=== PATIENT | female | born 1990 | race Caucasian/White ===

== ENCOUNTER 2021-01-04 11:22 | Outpatient (RCR) | payer OTHER, SELFPAY | END 2021-04-02 23:59 | disposition home or self-care (01) | LOC: ANHLAB 11:22 | PROVIDERS: Visit Provider Obstetrics & Gynecology | DX: N92.6 Irregular menstruation, unspecified (principal) | CPT/HCPCS: 36415; 84702 ==

== ENCOUNTER 2021-08-13 11:10 | Outpatient (CLI) | payer OTHER, SELFPAY ==
[2021-08-13] VITALS (9 sets, daily range): BP systolic 110–130; BP diastolic 63–91; PULSE 88–108
[2021-08-13 12:11] LABS: Basophils Percent Auto 0.2 % (0.2-1.2); Eosinophils Absolute Auto 0.1 K/mm3 (0-0.3); Eosinophils Percent Auto 1.7 % (0-4.4); Hematocrit 32.2 % (37.0-47.0); Hemoglobin 10.1 g/dL (12.0-15.0); Immature Granulocyte Absolute 0.02 K/mm3 (0.00-0.031); Immature Granulocyte Percent A 0.3 % (0-0.5); Lymphocytes Absolute Auto 1.15 K/mm3 (0.9-3.2); Lymphocytes Percent Auto 18.2 % (18.3-44.2); Mean Corpuscular HGB Conc 31.4 g/dl (32-36); Mean Corpuscular Hemoglobin 25.6 pg (26-34); Mean Corpuscular Volume 81.7 fl (80-100); Mean Platelet Volume 10.2 fl (7.4-10.4); Monocytes Absolute Auto 0.3 K/mm3 (0.1-0.6); Monocytes Percent Auto 5.4 % (2.6-8.5); Neutrophils Absolute Auto 4.7 K/mm3 (1.3-6.7); Neutrophils Percent Auto 74.2 % (45.5-73.1); Platelet Count Result 179 k/mm3 (150-375); Red Blood Count 3.94 M/mm3 (4.2-5.4); Red Cell Distribution Width 16.3 % (11.5-14.5); White Blood Count 6.3 K/mm3 (4.5-10.0)
[2021-08-13 12:20] LABS: Alanine Aminotransferase 13 U/L (4-35); Albumin Level 3.5 g/dL (3.5-5.1); Alkaline Phosphatase 125 U/L (38-126); Anion Gap 5 mmol/L (8-16); Aspartate Amino Transferase 19 U/L (14-36); Bilirubin,Total 0.4 mg/dL (0.2-1.3); Blood Urea Nitrogen 8 mg/dL (7-17); Calcium 8.4 mg/dL (8.4-10.2); Carbon Dioxide 22 mmol/L (22-30); Chloride 106 mmol/L (98-107); Estimated Glomerular Filt Rate > 60; Glucose 107 mg/dL (65-110); Potassium 4.4 mmol/L (3.4-5.0); Sodium 133 mmol/L (137-145)
[2021-08-13 13:15] LABS: Total Protein Urine Random 10 mg/dL; Ur Ttl Prot Creatinine Ratio 0.21 mg/mg (0-0.20)
[2021-08-13 13:17] LABS: Add Urine Microscopic? YES; Appearance Urine Clear (Clear); Bilirubin Urine Negative (Negative); Blood Urine Negative (Negative); Color Urine Straw (Yellow); Glucose Urine UA Negative (Negative); Ketones Urine Negative (Negative); Leukocyte Esterase Ur Negative LEU/UL (NEGATIVE); Nitrate Urine Negative (Negative); Protein Urine Negative (Negative); Squamous Epithelial Cell Urine Few /hpf (Few); Urobilinogen Urine Negative mg/dL (<2.0)
[2021-08-13 13:18] LABS: Specific Grav Ur 1.004 (1.001-1.035)
--- NOTE | 2021-08-13 14:20 | PC.NURSE ---
Called Dr. Cowan with lab results, BPs, and NST results. Wandering baseline on NST with reactive tracing. Orders received.
== END 2021-08-13 14:30 | disposition home or self-care (01) ==
LOC: ANHOBOP 11:15 → ANHLDR 11:43
PROVIDERS: PCP Internal Medicine Infectious Disease; Visit Provider Obstetrics & Gynecology
DX: O13.9 Gestational [pregnancy-induced] hypertension without significant proteinuria, unspecified trimester (principal); Z3A.00 Weeks of gestation of pregnancy not specified
CPT/HCPCS: 36415; 80053; 81001; 82570; 84156; 84550; 85025; 87086; 87088; 99199

== ENCOUNTER 2021-08-14 19:15 | Outpatient (NON) | payer OTHER, SELFPAY ==
[2021-08-14 19:36] VITALS: BMI 54.8
[2021-08-14 20:42] LABS: Collection Time Urine 24 HOURS
[2021-08-14 21:00] LABS: Total Volume 24 Hour Urine 1500 ml
[2021-08-14 21:17] LABS: Creatinine Clearance Urine 123.4 ml/min (75-125); Creatinine Urine 116.8 mg/dL; Patient Weight 329 Lbs
[2021-08-14 21:23] LABS: Total Protein Urine 24 Hr 75 mg/24hr (28-141); Total Protein Urine Random < 5 mg/dL
== END 2021-08-14 19:16 | disposition home or self-care (01) ==
LOC: ANHOBOP 19:27
PROVIDERS: PCP Internal Medicine Infectious Disease; Visit Provider Obstetrics & Gynecology
DX: O13.9 Gestational [pregnancy-induced] hypertension without significant proteinuria, unspecified trimester (principal); Z3A.00 Weeks of gestation of pregnancy not specified
CPT/HCPCS: 81050; 82575; 84156

== ENCOUNTER 2021-08-17 13:39 | Outpatient (CLI) | payer OTHER, SELFPAY ==
[2021-08-17 14:06] LABS: Hemoglobin 10.4 g/dL (12.0-15.0); Mean Corpuscular HGB Conc 30.6 g/dl (32-36); Mean Corpuscular Hemoglobin 25.7 pg (26-34); Mean Corpuscular Volume 84.2 fl (80-100); Mean Platelet Volume 10.5 fl (7.4-10.4); Platelet Count Result 198 k/mm3 (150-375); Red Blood Count 4.04 M/mm3 (4.2-5.4); Red Cell Distribution Width 16.6 % (11.5-14.5); White Blood Count 5.6 K/mm3 (4.5-10.0)
[2021-08-19 07:21] LABS: Rapid Plasma Reagin Non-Reactive (NonReactive)
== END 2021-08-17 13:40 | disposition home or self-care (01) ==
LOC: ANHLAB 13:41
PROVIDERS: PCP Internal Medicine Infectious Disease; Visit Provider Obstetrics & Gynecology
DX: Z34.93 Encounter for supervision of normal pregnancy, unspecified, third trimester (principal); Z3A.00 Weeks of gestation of pregnancy not specified
CPT/HCPCS: 36415; 85027; 86592; 86850; 86900; 86901

== ENCOUNTER 2021-08-19 05:30 | Inpatient (IN) | payer OTHER, SELFPAY ==
--- NOTE | 2021-08-06 12:49 | PC.NURSE ---
Verified with OR schedule and patient--C/S with Tubal Ligation on 08/19/21 at 0730 Patient given requisition for lab draw on 08/17/21
[2021-08-19] VITALS (44 sets, daily range): BP systolic 100–129; BP diastolic 44–79; PULSE 77–108; RESP 16–20; TEMP 36.1–36.8; O2SAT 95–100; BMI 55.5
--- OUTSIDE RECORDS SUMMARY | 2021-08-19 05:35 | XMS_ITS | Encounter Summary ---
:1990 Author Reason for Visit OB visit Assessment and Plan Assessment Note Patient is ___weeks . Discu ssed plan. 1. Routine care Discussion Note: None recorded.Patient educational handouts: No information available. Plan of Care Reminders Provider Appointments Surg Post 08/26/2021 Vilma Estrada Op 11:15AM MD David Lab None ? ? recorded. Referral None ? ? recorded. Procedures None ? ? recorded. Surgeries None ? ? recorded. Imaging None ? ? recorded. Medications Name Start Date ? ? Vitamin 27 mg iron-0.8 mg tablet ? Take 1 tablet every day by oral route. Medications Administered None recorded. Vitals Height Weight BMI Blood Pressure 5 ft 5 in 326 lbs 54.2 kg/m2 (1) 135/84 mm[H g] (2) 128/87 mm[Hg ] Results Lab Results None recorded. Allergies Code Code System Name Reaction Severity Onset NKDA ? ? ? Problems Name Status Onset Date Source ? Human Papillomavirus Deoxyribonucleic Active 10/13/2016 History Acid Test Positive, High Risk on Cervic
--- OUTSIDE RECORDS SUMMARY | 2021-08-19 05:35 | XMS_ITS ---
:1990 Author Care Team Providers Name Role Phone Catherine Cowan Primary Care Provider Unavailable Allergies Code Code System Name Reaction Severity Status Onset NKDA ? Medications Name Status Start Date Stop Date ? ? amoxicillin 500 mg capsule Completed 02/07/201502/16 take 1 capsule by oral route 3 times every day for 10 days Augmentin 875 mg-125 mg tablet Completed 05/11/2017 1 08/11/2016 take 1 tablet by oral route every 12 hours azithromycin 250 mg tablet Completed 03/11/201303/15 take 2 tablet (500MG) by oral route e very day for 1 day then 1 tablet (250 mg) by oral route once daily for 4 days fluconazole 150 mg tablet Completed ? 2020 furosemide 20 mg tablet Completed ? 12/15/19 14 take 1 tablet by oral route every day Incassia 0.35 mg tablet Completed ? 05/14/20 21 Macrobid 100 mg capsule Completed 01/31/2015 10/04/19 17 take 1 capsule by oral route every 12 hours with food, as dire cted metoclopramide 10 mg tablet Completed ? 03/2021 Metrogel Vaginal 0.75 % Completed 03/11/2013 03/15/20 13 insert 1 applicatorful (37.5MG) by vaginal route every day at bedtime Vitamin 27 mg iron-0.8 mg tablet Active ? Not available Take 1 tablet every day by oral route. progesterone micronized 200 mg Active ? N ot available capsule Se--19 29 mg iron-1 mg tablet Completed 06/15/2012 12/14/2013 take 1 tablet by oral route every day terconazole 0.4 % vaginal cream Completed ? 03/19/2021 Insert 1 applicatorful every day by vaginal route for 7 days.
--- OUTSIDE RECORDS SUMMARY | 2021-08-19 05:35 | XMS_ITS | Encounter Summary ---
:1990 Author Reason for Visit OB visit Assessment and Plan 1. Chronic hypertension in obste tric context 2. Deliveries by 3. Body mass index 40+ - severel y obese Discussion Note: None recorded.Patient educational handouts: No [...] BMI Blood Pressure 5 ft 5 in 323 lbs 53.7 kg/m2 132/83 mm[Hg] Results Lab Results None recorded. Allergies Code Code System Name Reaction Severity Onset NKDA ? ? ? Problems Name Status Onset Date Source ? Human Papillomavirus Deoxyribonucleic Active 10/13/2016 History Acid Test Positive, High Risk on Cervical Specimen Uterine Sca
--- OUTSIDE RECORDS SUMMARY | 2021-08-19 05:35 | XMS_ITS | Encounter Summary ---
:1990 Author Reason for Visit None recorded. Assessment and Plan 1. Chronic hypertension complica ting AND/OR reason for care during ? US, obstetric, biophysical profile + non-stress test Discussion Note: None recorded.Patient educational handouts: No information available. Plan of Care Reminders Provider Appointments Surg Post Op Haley Estrada 08/26/2021 MD David 11:15AM Lab None recorded. ? ? Referral None recorded. ? ? Procedures None recorded. ? ? Surgeries None recorded. ? ? Imaging US, Obstetric, [facility] Biophysical Profile + 07/30/2021 Non-stress Test Medications Name Start Date ? ? Vitamin 27 mg iron-0.8 mg tablet ? Take 1 tablet every day by oral route. Medications Administered None recorded. Vitals None recorded. Results Lab Results None recorded. Allergies Code Code System Name Reaction Severity Onset NKDA ? ? ? Problems Name Status Onset Date Source ? Human Papillomavirus Deoxyribonucleic Active 10/13/2016 History Acid Test Positive, High Risk on
--- OUTSIDE RECORDS SUMMARY | 2021-08-19 05:35 | XMS_ITS | Encounter Summary ---
:1990 Author Reason for Visit NST [id number] EDC 09/02/21 Assessment and Plan 1. Chronic hypertension complica ting AND/OR reason for care during ? non-stress test Discussion Note: None recorded.Patient educational handouts: No information available. Plan of Care Reminders Provider Appointments Surg Post 08/26/2021 Vilma Hernandez, [place] 11:15AM Lab None ? ? recorded. Referral None ? ? recorded. Procedures None ? ? recorded. Surgeries None ? ? recorded. Imaging 07/30/2021 [place] Non-stress Test Medications Name Start Date ? [...] Acid Test Positive, High Risk on Cervical S
--- OUTSIDE RECORDS SUMMARY | 2021-08-19 05:35 | XMS_ITS | Encounter Summary ---
:1990 Author Reason for Visit None recorded. Assessment and Plan 1. Maternal obesity complicating , childbirth and the puerperium, antepartum ? US, obstetric, biophysical profile + non-stress test Discussion Note: None recorded.Patient educational handouts: No information available. Plan of Care Reminders Provider Appointments Surg Post Op Haley Estrada 08/26/2021 MD David 11:15AM Lab None recorded. ? ? Referral None recorded. ? ? Procedures None recorded. ? ? Surgeries None recorded. ? ? Imaging US, Obstetric, [facility] Biophysical Profile + 08/13/2021 Non-stress Test Medications Name Start Date ? [...]
--- OUTSIDE RECORDS SUMMARY | 2021-08-19 05:35 | XMS_ITS | Encounter Summary ---
:1990 Author Reason for Visit None recorded. Assessment and Plan 1. Maternal obesity complicating , childbirth and the puerperium, antepartum ? US, obstetric, follow-up ? US, obstetric, biophysical profile + non-stress test Discussion Note: None recorded.Patient educational handouts: No information available. Plan of Care Reminders Provider Appointments Surg Post Op Haley Estrada 08/26/2021 MD David 11:15AM Lab None recorded. ? ? Referral None recorded. ? ? Procedures None recorded. ? ? Surgeries None recorded. ? ? Imaging US, Obstetric, [facility] Follow-up 08/06/2021 ? US, Obstetric, [place] Biophysical Profile + 08/06/2021 Non-stress Test Medications Name Start Date ? ? Vitamin 27 mg iron-0.8 mg tablet ? Take 1 tablet every day by oral route. Medications Administered None recorded. Vitals None recorded. Results Lab Results None recorded. Allergies Code Code System Name Reaction Severity Onset NKDA ? ? ? Proble
--- OUTSIDE RECORDS SUMMARY | 2021-08-19 05:35 | XMS_ITS | Encounter Summary ---
:1990 Author Reason for Visit OB visit OB [id number] EDC 09/02/2021 LMP 09/13/2020 Assessment and Plan 1. Routine care Discussion Note: None recorded.Patient [...] BMI Blood Pressure 5 ft 5 in 327 lbs 54.4 kg/m2 122/64 mm[Hg] Results Lab Results None recorded. Allergies Code Code System Name Reaction Severity Onset NKDA ? ? ? Problems Name Status Onset Date Source ? Human Papillomavirus Deoxyribonucleic Active 10/13/2016 History Acid Test Positive, High Risk on Cervical Specimen Uterine Scar from Previous Surgery Active 07/19/2019 History Affecting
--- OUTSIDE RECORDS SUMMARY | 2021-08-19 05:35 | XMS_ITS | Encounter Summary ---
[...] None recorded. ? ? Imaging US, Obstetric, [facility] Biophysical Profile + 07/23/2021 Non-stress Test Medications Name Start Date ? [...]
--- OUTSIDE RECORDS SUMMARY | 2021-08-19 05:35 | XMS_ITS | Encounter Summary ---
:1990 Author Reason for Visit None recorded. Assessment and Plan 1. Maternal obesity complicating , childbirth and the puerperium, antepartum ? non-stress test Discussion Note: None recorded.Patient educational handouts: No information available. Plan of Care Reminders Provider Appointments Surg Post 08/26/2021 Vilma Hernandez, Op 11:15AM Lab None ? ? recorded. Referral None ? ? recorded. Procedures None ? ? recorded. Surgeries None ? ? recorded. Imaging 08/06/2021 [place] Non-stress Test Medications Name Start Date ? [...] Scar from Previous Surgery Active 07/19/2019 History Affect
--- OUTSIDE RECORDS SUMMARY | 2021-08-19 05:35 | XMS_ITS | Encounter Summary ---
[...] recorded. Surgeries None ? ? recorded. Imaging 08/13/2021 [place] Non-stress Test Medications Name Start Date ? [...]
--- OUTSIDE RECORDS SUMMARY | 2021-08-19 05:35 | XMS_ITS | Encounter Summary ---
[...] recorded. Surgeries None ? ? recorded. Imaging 07/23/2021 [place] Non-stress Test Medications Name Start Date ? [...] from Previous Surgery Active 07/19/2019 History Affecting Preg
--- OUTSIDE RECORDS SUMMARY | 2021-08-19 05:35 | XMS_ITS | Encounter Summary ---
:1990 Author Reason for Visit OB visit and pre-op Assessment and Plan 1. Chronic hypertension in obste tric context 2. History of pre-eclampsia 3. Deliveries by 4. Headache 5. Reduced movement Discussion Note: None recorded.Patient educational handouts: No [...] BMI Blood Pressure 5 ft 5 in 329 lbs 54.7 kg/m2 141/85 mm[Hg] Results Lab Results None recorded. Allergies Code Code System Name Reaction Severity Onset NKDA ? ? ? Problems Name Status Onset Date Source ? Human Papillomavirus Deoxyribonucleic Active 10/13/2016 History
--- OUTSIDE RECORDS SUMMARY | 2021-08-19 05:36 | XMS_ITS | Encounter Summary ---
:1990 Author Reason for Visit NST 32wks 1d EDC 09/02/2021 Assessment and Plan 1. Chronic hypertension complica ting AND/OR reason for care during ? non-stress test Discussion Note: None recorded.Patient educational handouts: No information available. Plan of Care Reminders Provider Appointments Surg Post 08/26/2021 Vilma Hernandez, [place] 11:15AM Lab None ? ? recorded. Referral None ? ? recorded. Procedures None ? ? recorded. Surgeries None ? ? recorded. Imaging 07/09/2021 [place] Non-stress Test Medications Name Start Date ? ? Vitamin 27 mg iron-0.8 mg tablet ? Take 1 tablet every day by oral route. Medications Administered None recorded. Vitals Height Weight BMI Blood Pressure 5 ft 5 in 321 lbs 53.4 kg/m2 143/82 mm[Hg] Results Lab Results None recorded. Allergies Code Code System Name Reaction Severity Onset NKDA ? ? ? Problems Name Status Onset Date Source ? Human Papillomavirus Deoxyribonucleic Active 10/13/2016 History Acid Test Positive, High Risk on Cervical
--- OUTSIDE RECORDS SUMMARY | 2021-08-19 05:36 | XMS_ITS | Encounter Summary ---
:1990 Author Reason for Visit OB visit Assessment and Plan 1. Chronic hypertension in obste tric context 2. Body mass index 40+ - severel y obese 3. Deliveries by ? section (SURG) 4. Sterilization requested ? salpingectomy (SURG) Discussion Note: None recorded.Patient educational handouts: No information available. Plan of Care Reminders Provider Appointments Surg Post Op Haley Estrada 08/26/2021 MD David 11:15AM Lab None recorded. ? ? Referral None recorded. ? ? Procedures None recorded. ? ? Surgeries Section Chris Surgery (SURG) 08/19/2021 David ? Salpingectomy And erson Surgery (SURG) 08/19/2021 David Imaging None recorded. ? ? Medications Name Start Date ? ? Vitamin 27 mg iron-0.8 mg tablet ? Take 1 tablet every day by oral route. Medications Administered None recorded. Vitals Height Weight BMI Blood Pressure 5 ft 5 in 318 lbs 52.9 kg/m2 137/82 mm[Hg] Results Lab Results
--- OUTSIDE RECORDS SUMMARY | 2021-08-19 05:36 | XMS_ITS | Encounter Summary ---
[...] recorded. Surgeries None ? ? recorded. Imaging 07/16/2021 [place] Non-stress Test Medications Name Start Date ? [...]
--- OUTSIDE RECORDS SUMMARY | 2021-08-19 05:36 | XMS_ITS | Encounter Summary ---
:1990 Author Reason for Visit None recorded. Assessment and Plan 1. screening ? US, obstetric, follow-up Discussion Note: None recorded.Patient educational handouts: No information available. Plan of Care Reminders Provider Appointments Surg Post 08/26/2021 Vilma Hernandez, Op 11:15AM Lab None ? ? recorded. Referral None ? ? recorded. Procedures None ? ? recorded. Surgeries None ? ? recorded. Imaging US, 06/10/2021 [place] Obstetric, Follow-up Medications Name Start Date ? ? Vitamin [...] from Previous Surgery Active 07/19/2019 History Affecting Active
--- OUTSIDE RECORDS SUMMARY | 2021-08-19 05:36 | XMS_ITS | Encounter Summary ---
:1990 Author Reason for Visit OB visit 33w1d Assessment and Plan 1. Routine care 2. -induced hypertensio n ? CBC w/ auto diff ? CMP, serum or plasma ? uric acid, serum or plasma Discussion Note: None recorded.Patient educational handouts: No information available. Plan of Care Reminders Provider Appointments Surg Post 08/26/2021 Vilma Estrada Op 11:15AM MD David Lab CBC W/ Auto 07/16/2021 [facility] (Lab) ? CMP, Serum 07/16/2021 [facility] (Lab) ? Uric Acid, 07/16/2021 [facility] Serum or Plasma [facility] (Lab) Referral None ? ? recorded. Procedures None ? ? recorded. Surgeries None ? ? recorded. Imaging None ? ? recorded. Medications Name Start Date ? ? Vitamin 27 mg iron-0.8 mg tablet ? Take 1 tablet every day by oral route. Medications Administered None recorded. Vitals Height Weight BMI Blood Pressure 5 ft 5 in 324 lbs 53.9 kg/m2 (1) 148/89 mm[H g] (2) 152/92 mm[Hg ]
--- OUTSIDE RECORDS SUMMARY | 2021-08-19 05:36 | XMS_ITS | Encounter Summary ---
:1990 Author Reason for Visit OB visit 30w1d Assessment and Plan 1. Routine care 2. Chronic hypertension complica ting AND/OR reason for care during Discussion Note: None recorded.Patient educational handouts: No [...] ft 5 in 318 lbs 52.9 kg/m2 121/89 mm[Hg] Results Lab Results None recorded. Allergies Code Code System Name Reaction Severity Onset NKDA ? ? ? Problems Name Status Onset Date Source ? Human Papillomavirus Deoxyribonucleic Active 10/13/2016 History Acid Test Positive, High Risk on Cervical Specimen
--- OUTSIDE RECORDS SUMMARY | 2021-08-19 05:36 | XMS_ITS | Encounter Summary ---
:1990 Author Reason for Visit OB visit 32w1d Assessment and Plan 1. Routine care Discussion [...]
--- OUTSIDE RECORDS SUMMARY | 2021-08-19 05:36 | XMS_ITS | Encounter Summary ---
[...] ? Imaging US, Obstetric, [facility] Follow-up 07/09/2021 ? US, Obstetric, [place] Biophysical Profile + 07/09/2021 Non-stress Test Medications Name Start Date ? ? Vitamin 27 mg iron-0.8 mg tablet ? Take 1 tablet every day by oral route. Medications Administered None recorded. Vitals None recorded. Results Lab Results None recorded. Allergies Code Code System Name Reaction Severity Onset NKDA ? ? ? Problem
--- OUTSIDE RECORDS SUMMARY | 2021-08-19 05:36 | XMS_ITS | Encounter Summary ---
[...] None recorded. ? ? Imaging US, Obstetric, [facility] Biophysical Profile + 07/16/2021 Non-stress Test Medications Name Start Date ? [...]
--- NOTE | 2021-08-19 06:47 | P.PNAN_ITS ---
Anes - Initial Pre Proc Eval Procedure: Operation Date: 08/19/21 07:30 Proposed Procedures p Repeat Section with Bilateral Salpingectomy - Micaela Hernandez MD Date/Time: 08/19/21 06:47 Surgeon: Micaela Hernandez MD Pre Op Diagnosis: Repeat Section Patient Data Age: 30 Gender: F Height: 1.63 m Weight: 146.82 kg Last Vital Signs Pulse 108 H 08/19/21 06:09 BP 129/73 08/19/21 06:09 Allergies Allergy/AdvReac Type Severity Reaction Status Date / Time No Known Allergies Allergy Verified 12/21/18 18:25 Home Medications Medication Instructions Recorded Confirmed Type No Home Medications 07/19/19 07/19/19 History hydrocodone-acetaminophen 1 tab PO Q3H PRN #30 tablet 07/21/19 Rx Patient hx anesthesia problems: none Family hx anesthesia problems: none Results Review: All pre-operative results and documents have been reviewed as part of the pre-operative evaluation. [facility] Past Medical History Medical History (Updated 08/19/21 @ 06:47 by Jaquan Mendoza MD) Morbid obesity Family History Family History Father Hypertension Mother Hypertension Diabetes mellitus Grandparent Diabetes mellitus Social History Social History Smoking status: Never smoker Second hand tobacco smoke exposure: No Substance use: never Spiritual care concerns: No Anes - Eval Final PreProcedure Day of Procedure 08/19/21 06:47 Patient weight: super morbidly obese Heart: regular rate and rhythm Lungs: clear to auscultation Airway: Mallampati scale class II Neurological: alert and oriented Last oral intake: >/= 8 hours ASA classification: III Emergent: no Anesthetic plan: proceed Anesthesia type and monitoring: regional spinal and standard monitoring Results Review: All pre-operative results and documents have been reviewed as part of the pre-operative evaluation. Informed Consent: The patient's anesthetic plan and its attendant risks and benefits were discussed with the patient/family/POA. Questions were solicited and answers provided to the satisfaction of the patient/family/POA.
[2021-08-19] MEDS: ceFAZolin 3 GM/D5W 100 ML 100 ML IVPB (07:31)
[2021-08-19] MEDS: OXYTOCIN 30 UNITS/NS 500 ML 30 UNITS/500 ML BAG 125 UNITS IV CONT (11:31)
--- NOTE | 2021-08-19 11:54 | PC.NURSE ---
Patient transferred to post room #277 via stretcher. Support person present. Oriented to unit, room, information board, rooming in, admission packet and security measures. Patient verbalizes understanding.
--- NOTE | 2021-08-19 12:31 | W.PM.PROC2 ---
Procedure Note - Detailed Date of Procedure 08/19/21 Pre-op Diagnosis Repeat Section, unwanted fertility, Post-op Diagnosis same ( with incidental cystotomy) Procedure Performed Low-transverse section, cystotomy repair Surgeon Micaela Hernandez MD Anesthesia spinal Indications incidental cystotomy, term gestation, previous , unwanted fertility Findings Normal gestational maternal anatomy, average size infant, normal Apgars. Description of Procedure The patient was taken the operating room. She was prepped and draped in dorsal supine position with a leftward tilt. This was done after spinal anesthetic was applied. A low-transverse skin incision was made and carried down till of the fascia with the knife. The fascial incision was made with the knife. The fascial incision was extended laterally with Echeverria scissors. The fascia was tented upward superiorly and inferiorly the rectus muscles were dissected off bluntly. The rectus muscles were the midline. The preperitoneal fat and peritoneum were dissected open bluntly at the superior aspect of the rectus muscles. The peritoneal incision was extended superior and inferior with good position of bladder. The uterine incision was made with a scalpel down to the level of the amniotic cavity. The amniotic cavity was entered bluntly. The was delivered. The cord was clamped and cut and the infant was handed off to waiting pediatric staff. Cord bloods were obtained. The placenta was removed manually. The uterus was exteriorized. The uterus was cleared of all clots, debris and membranes. The uterus was closed in 0 Vicryl running lock fashion. An imbricating over a was placed along the incision line as well. Cystotomy was observed on the dome of the bladder. The tissue the bladder in the area of the uterus was extremely thin and friable. This appeared to happen at the time of delivery. A partial bladder flap was performed before the delivery and some tissue on the right side that appeared to be fat was left in place. After delivery this area was noted to be bladder tissue and a to 0.5 cm defect was noted in that area. It was closed with 2 imbricating layers of 2-0 Vicryl. The bladder was filled with saline that was dyed with methylene blue. There was a thin area adjacent to it on the dome of the bladder. Infertility layers of suture were used to bolster this area. After that repair was filled a final time and the bladder was without defect, the thin area that that was translucent and blue previously was now covered with surrounding interstitial tissue. During repair of the bladder who hemorrhage began in the left lower uterus in the area of the uterine arteries. It appeared to be venous. LigaSure cautery was used to make hemostatic. Each fallopian tube was grasped and raised with a [place]. With from the underlying venous structures. The mesosalpinx between the tube and the rest the adnexa was cauterized and transected with LigaSure cautery. It was performed from the distal tube near the ovary in a stepwise fashion towards the cornua. The tube at the cornua was cauterized transected with LigaSure cautery. This was performed in a bilateral fashion. Each fallopian tube was grasped and raised with a Fyn. With from the underlying venous structures. The mesosalpinx between the tube and the rest the adnexa was cauterized and transected with LigaSure cautery. It was performed from the distal tube near the ovary in a stepwise fashion towards the cornua. The tube at the cornua was cauterized transected with LigaSure cautery. This was performed in a bilateral fashion. The uterus was returned to the abdomen. The gutters were cleared of all clots and debris. The fascia was closed with 0 Vicryl running fashion. The subcutaneous tissue was irrigated pinpoint bleeders were cauterized. The skin was closed with subcuticular absorbable
--- NOTE | 2021-08-19 12:36 | PM.IMHP ---
H&P: HPI History of Present Illness Date/Time: 08/19/21 12:36This patient is a 27-year-old multiparous female with a term gestation previous delivery who wants female sterilization. We have agreed for repeat delivery and bilateral salpingectomy. She understands the this wrist surgery. She understands that injuries may occur that result in hospitalization, more surgery, severe illness. She denies any headache, blurry vision, epigastric pain she denies any chest pain or shortness of breath. She denies any nausea vomiting, fever, chills. Chief Complaint: Term gestation Review of Systems Review of Systems: All systems reviewed & are unremarkable except as noted in HPI and below Constitutional: Constitutional: Denies chills, Denies fatigue, Denies fever(s) and Denies weakness Eyes: Eyes: Denies blurry vision, Denies change in vision, Denies loss of peripheral vision, Denies loss of vision, Denies other visual disturbances and Denies eye pain ENT: Denies vertigo, Denies dizziness, Denies hearing loss, Denies mouth pain, Denies nasal obstruction, Denies neck mass and Denies neck pain Cardiovascular: Cardiovascular: Denies chest pain, Denies diaphoresis, Denies syncope, Denies leg edema and Denies dyspnea Respiratory: Respiratory: Denies chest congestion, Denies cough, Denies hemoptysis, Denies dyspnea and Denies wheezing Gastrointestinal: Gastrointestinal: Denies abdominal pain, Denies constipation, Denies diarrhea, Denies nausea and Denies vomiting Genitourinary: Genitourinary: Denies hematuria, Denies change in libido, Denies nocturia, Denies genital lesions, Denies flank pain and Denies urinary urgency Musculoskeletal: Musculoskeletal: Denies abnormal gait, Denies back pain, Denies myalgias, Denies arthralgias, Denies joint swelling, Denies muscle weakness and Denies neck pain Integumentary/Breasts: Skin/Breast: Denies swelling, Denies breast pain, Denies breast mass, Denies dry skin, Denies nipple discharge, Denies unusual bruising and Denies jaundice Neurologic: Denies Neuro-related abnormal movements, Denies Abnormal speech present, Denies abnormal gait, Denies behavioral changes, Denies confusion, Denies vertigo, Denies dizziness, Denies syncope, Denies loss of vision, Denies memory loss, Denies convulsions and Denies weakness Psychiatric: Psychiatric: Denies abnormal sleep pattern, Denies behavioral changes, Denies change in libido, Denies confusion, Denies depression, Denies anhedonia and Denies memory loss Endocrine: Endocrine: Reports no additional endocrine complaints, Denies change in libido and Denies fatigue Hematologic/Lymphatic: Hematologic/Lymphatic: Reports no additional hematologic/lymphatic complaints Allergic/Immunologic: Allergic/Immunologic: Reports no additional allergic/immunologic complaints and Denies wheezing PMFSH Past Medical History Medical History (Updated 08/19/21 @ 12:37 by Micaela Hernandez MD) Morbid obesity Family History Family History Father Hypertension Mother Hypertension Diabetes mellitus Grandparent Diabetes mellitus Social History Social History Smoking status: Never smoker Second hand tobacco smoke exposure: No Substance use: never Spiritual care concerns: No Meds Home Medications and Allergies Home Medications Medication Instructions Recorded Confirmed Type No Home Medications 07/19/19 07/19/19 History hydrocodone-acetaminophen 1 tab PO Q3H PRN #30 tablet 07/21/19 Rx Allergies Allergy/AdvReac Type Severity Reaction Status Date / Time No Known Allergies Allergy Verified 12/21/18 18:25 Vital Signs Vital Signs - 24 hr 08/19/21 06:09 08/19/21 09:36 08/19/21 09:37 Temperature 97.7 F Pulse Rate 108 H Respiratory Rate 16 Blood Pressure 129/73 Pulse Oximetry 95 08/19/21 09:40 08/19/21 09:42 08/19/21 09:4
--- NOTE | 2021-08-19 12:39 | WPDHPUPDATE1 ---
History and Physical Update Update Date/Time: 08/19/21 12:39 History and Physical has been reviewed, including an updated exam of the patient. There are NO changes in the patient's condition. Risks, benefits, and alternatives have been discussed and questions answered. Patient agrees to proceed with procedure.
[2021-08-19] MEDS: POLYSACCHARIDE IRON COMPLEX 150 MG CAPSULE PO (15:49)
[2021-08-19] MEDS: DEXTROSE 5%/0.45% SOD CHL 1,000 ML 125 ML IV CONT (15:50)
[2021-08-19] MEDS: HYDROcodone/acetaminophen (*CRX) 5-325 MG TABLET 1 TAB PO (19:23)
[2021-08-19] MEDS: SIMETHICONE 80 MG TAB.CHEW PO (19:23)
[2021-08-20 00:19] VITALS: BP 118/58; PULSE 97; RESP 18; TEMP 36.9; O2SAT 99
[2021-08-20] MEDS: KCL 20 MEQ/D5/0.45% SOD CHL 1,000 ML 125 ML IV CONT (00:23)
[2021-08-20] MEDS: HYDROcodone/acetaminophen (*CRX) 5-325 MG TABLET 1 TAB PO (03:44)
[2021-08-20] MEDS: IBUPROFEN 600 MG TABLET PO ×2 (03:44→11:25)
[2021-08-20 04:04] VITALS: BP 107/58; PULSE 100; RESP 16; TEMP 36.9; O2SAT 99
[2021-08-20 05:28] LABS: Basophils Percent Auto 0.3 % (0.2-1.2); Eosinophils Absolute Auto 0.1 K/mm3 (0-0.3); Eosinophils Percent Auto 1.1 % (0-4.4); Hematocrit 25.7 % (37.0-47.0); Immature Granulocyte Absolute 0.02 K/mm3 (0.00-0.031); Immature Granulocyte Percent A 0.3 % (0-0.5); Lymphocytes Absolute Auto 1.48 K/mm3 (0.9-3.2); Mean Corpuscular HGB Conc 31.1 g/dl (32-36); Mean Corpuscular Hemoglobin 26.4 pg (26-34); Mean Corpuscular Volume 84.8 fl (80-100); Mean Platelet Volume 10.8 fl (7.4-10.4); Monocytes Absolute Auto 0.5 K/mm3 (0.1-0.6); Monocytes Percent Auto 8.8 % (2.6-8.5); Neutrophils Percent Auto 65.5 % (45.5-73.1); Platelet Count Result 150 k/mm3 (150-375); Red Blood Count 3.03 M/mm3 (4.2-5.4); Red Cell Distribution Width 16.8 % (11.5-14.5); White Blood Count 6.2 K/mm3 (4.5-10.0)
[2021-08-20 07:45] VITALS: BP 132/70; PULSE 100; RESP 16; TEMP 37.2; O2SAT 96
--- NOTE | 2021-08-20 07:58 | P.PNOB_ITS ---
OB - PN: Subj Subjective Date/time seen: 08/20/21 07:59 Patient comments: no complaints, pain well controlled, tolerating diet and flatus present OB - PN: Obj Data Labs CBC & Chem 7: 08/20/21 03:53 Labs: Laboratory Results - last 24 hr 08/20/21 03:53 WBC 6.2 RBC 3.03 L Hgb 8.0 L Hct 25.7 L MCV 84.8 MCH 26.4 MCHC 31.1 L RDW 16.8 H Plt Count 150 MPV 10.8 H Immature Gran % (Auto) 0.3 Neut % (Auto) 65.5 Lymph % (Auto) 24.0 Gilchrist % (Auto) 8.8 H Eos % (Auto) 1.1 Baso % (Auto) 0.3 Lymph # (Auto) 1.48 Gilchrist # (Auto) 0.5 Eos # (Auto) 0.1 Baso # (Auto) 0.0 Abs Immat Gran (auto) 0.02 Absolute Neuts (auto) 4.0 Absolute Nucleated RBC 0.0 Nucleated RBC % 0.0 OB - PN A/P Plan day: 1 Comments: Post Op LTCS with incidental cystotomy - no problems, routine recovery,Very serous output from the drain, blood tinged, catheter placed in the bladder, to stay for 1 week. Patient is stable and doing well. Talked about removal of the drain. Will do it tomorrow. Time Spent With Patient Time: Total time spent is greater than 50% in coordination of care (as documented) at patient's floor/unit and/or counseling patient: Exam Const: General: cooperative, healthy appearing, comfortable and no acute distress Resp: Auscultation: no crackles, no rales, no rhonchi and no wheezes Cardio: Rhythm: regular rhythm Heart sounds: no click and no murmurs GI: Inspection: non-distended Auscultation: normal bowel sounds Extrem: General: normal to inspection, no pedal edema and no calf tenderness
[2021-08-20] MEDS: POLYSACCHARIDE IRON COMPLEX 150 MG CAPSULE PO ×2 (08:39→16:25)
--- NOTE | 2021-08-20 09:26 | WPDANLDNPN2 ---
Anes-Prog Note L&D-Neuraxial Date/Time: 08/20/21 09:26 Neuraxial medications: intrathecal PF morphine Opiod-related complaints: none Patient feedback: Patient satisfied with post-operative pain management.
--- NOTE | 2021-08-20 09:27 | WPDANLDPN2 ---
Anes-Prog Note L&D Date/Time: 08/20/21 09:27 Comfortable throughout: section Neuraxial method: spinal Epidural/Spinal procedure site: clean & non-tender Neuro status: Neuro function grossly intact. Cardiovascular status: normal Respiratory status: normal Airway patency: baseline Mental status: baseline Post-Op hydration status: normal Vital Signs: Last Vital Signs Temp 37.2 C 08/20/21 07:45 Pulse 100 08/20/21 07:45 Resp 16 08/20/21 07:45 BP 132/70 08/20/21 07:45 Pulse Ox 96 08/20/21 07:45 Pain score (VAS): 0 I/O: Intake & Output 08/19/21 08/20/21 08/20/21 23:59 07:59 15:59 Intake Total 545 1000 Output Total 775 1770 Balance -230 -770 Post-procedural complaints: none Patient feedback: Patient satisfied with anesthetic care.
[2021-08-20] MEDS: ACETAMINOPHEN 325 MG TABLET 650 MG PO (16:24)
[2021-08-20] MEDS: DOCUSATE SODIUM 100 MG CAPSULE PO (16:25)
[2021-08-20 20:00] VITALS: BP 128/70; PULSE 105; RESP 16; TEMP 37.2; O2SAT 100
[2021-08-21] MEDS: IBUPROFEN 600 MG TABLET PO ×2 (00:20→09:13)
[2021-08-21 07:00] VITALS: BP 122/74; PULSE 96; RESP 12; TEMP 36; O2SAT 99
--- NOTE | 2021-08-21 08:30 | PM.OBPNVD ---
OB - PN: Subj Subjective Date/time seen: 08/21/21 08:30 no complaints, remove drain today, had pain at the top of drain removal that resolved quickly. Patient comments: no complaints, pain well controlled, incisional pain, tolerating diet and flatus present OB - PN: Obj Data Labs CBC & Chem 7: 08/20/21 03:53 OB - PN A/P Assessment and Plan (1) delivery delivered: Code(s): O82 - Encounter for delivery without indication Status: Acute Plan day: 2 Plan: routine care Comments: POD#2 LTCS -Ge-Castillo drain removed from the pelvis, incidental cystotomy repaired at the time of surgery, to have Gillette for 1 week. Follow-up in 1 week. Discharge today with routine precautions and discussion of the is catheter. Time Spent With Patient Time: Total time spent is greater than 50% in coordination of care (as documented) at patient's floor/unit and/or counseling patient: Exam Const: General: comfortable, no acute distress and alert Resp: Effort & Inspection: normal respiratory effort Auscultation: no crackles, no rales and no rhonchi Cardio: Rate: regular rate Heart sounds: no click, no murmurs and no rubs GI: Inspection: non-distended GI Palp: No Tenderness to palpation present (GI) Auscultation: normal bowel sounds Other: Incision - CDI Extrem: General: normal to inspection, no pedal edema and no calf tenderness
--- NOTE | 2021-08-21 08:36 | PM.OBDSVD ---
DS: Admitting Diagnosis Discharge Date August 21, 2021 Admitting Diagnosis Term gestation, previous OB - DS: Summary OB Procedures : None OB Procedures Intrapartum: OB Procedures: : None Peripartum Data Infant Delivery Method: Section Procedures: Procedures Operation Date: 08/19/21 07:30 Actual Procedure Side Surgeon p Repeat Section with Bilateral Salpingectomy Micaela Hernandez MD complications: other (Incidental cystotomy, repaired at surgery, discharged with Gillette) Time Spent with Patient Time attestation: Total time spent providing and/or coordinating discharge services: DS: Data Data Completed and Pending Pending studies at discharge: Pending at discharge 08/19/21 10:23 Surgical [PTH] Routine Discharge Plan Discharge Attending physician on discharge: Micaela Hernandez Discharging Clinician: Micaela Hernandez Patient Disposition: Home, Self-Care Activity: pelvic rest Diet: regular Patient Instructions: Antibiotic Form Stand Alone Forms: General Discharge Information Follow-up/Referrals: Micaela Hernandez MD [Physician] - Discharge Medications: Continued hydrocodone-acetaminophen 5-325 mg Tablet 1 tab PO Q3H PRN (Reason: Moderate Pain (4-6)) Qty: 30 RF: 0 No Action No Home Medications RF: 0 Date of admission: 08/19/21 05:30 Primary Care Provider: PHYSICIAN,PROFESSOR [employer] Admitting Provider: Micaela Hernandez Attending physician on admission: Micaela Hernandez Condition: Stable
[2021-08-21] MEDS: POLYSACCHARIDE IRON COMPLEX 150 MG CAPSULE PO (09:13)
[2021-08-21] MEDS: TETANUS,DIPHTHERIA,AC PERTUSSIS ADULT (0.5 ML) BOOSTRIX IM (09:15)
--- NOTE | 2021-08-21 14:59 | PC.NURSE ---
Patient was given the opportunity to view the discharge video Mother & Baby Care, The First Two Weeks and to ask questions. Patient declined viewing the video and has been given the mother/baby guide for home reference.
[2021-08-22 10:34] VITALS: BP 132/87; PULSE 97; RESP 20; TEMP 36.9; O2SAT 100
== END 2021-08-21 14:06 | disposition home or self-care (01) | DRG 540 ==
LOC: ANHLDR 05:40 → ANHOB2 11:57
PROVIDERS: Admitting Provider Obstetrics & Gynecology; Visit Provider Obstetrics & Gynecology
PROC: 10D00Z1 Extraction of Products of Conception, Low, Open Approach (ICD-10-PCS; CPT 59514; principal; 2021-08-19 07:30)
DX: O34.211 Maternal care for low transverse scar from previous cesarean delivery (principal); Z37.0 Single live birth; Z3A.38 38 weeks gestation of pregnancy; O13.4 Gestational [pregnancy-induced] hypertension without significant proteinuria, complicating childbirth; O71.5 Other obstetric injury to pelvic organs; Z23 Encounter for immunization; Z30.2 Encounter for sterilization
CPT/HCPCS: 36415; 85025; 88302; 88307; 90471; 90653; 90715; A9270; G0008; J0131; J0690; J1100; J1200; J2274; J2405; J2590; J2704; J3480; Q9968

== ENCOUNTER 2021-08-26 12:22 | Outpatient (CLI) | payer OTHER, SELFPAY ==
--- NOTE | ~2021-08-26 | XR_ITS ---
EXAMINATION: XR cystogram EXAM DATE: 08/26/2021 13:04 INDICATION: Bladder injury. TECHNIQUE: Fluoroscopic guidance used during cystogram performed by Dr. Umer Santa, radiologist, thr [facility] Gillette catheter in place on patient arrival. An Omnipaque 350/saline solution was used and allowe d to infuse through the Gillette catheter under gravity. Flask Handler image, fluoroscopic images and postevacua tion image were obtained. Total fluoroscopic time of 0.1 minutes. The DAP for this procedure was 79 mGym2. A total of 15 images obtained for the exam. There is no prior study for comparison. FINDINGS: Flask Handler image is unremarkable. Patient tolerated approximately 152-200 milliliters of distent ion. Some lobulation to the superior bladder contour which could be postoperative. No contrast extra vasation was demonstrated. IMPRESSION: Lobular superior bladder contour probably postoperative. No extravasation. Reviewed, dictated and finalized at location A. WOOD LATHE OPERATOR IMPRESSION: Lobular superior bladder contour probably postoperative. No extrava sation.
== END 2021-08-26 12:23 | disposition home or self-care (01) ==
LOC: ANHIMG 12:26
PROVIDERS: Visit Provider Obstetrics & Gynecology
DX: S37.20XA Unspecified injury of bladder, initial encounter (principal); X58.XXXA Exposure to other specified factors, initial encounter
CPT/HCPCS: 51600; 74430; Q9967

== ENCOUNTER 2024-12-12 18:44 | Emergency (ER) | payer OTHER, SELFPAY ==
[2024-12-12 18:47] VITALS: BP 155/101; PULSE 78; RESP 20; TEMP 37; O2SAT 100
--- OUTSIDE RECORDS SUMMARY | 2024-12-12 18:47 | XMS_ITS | Data Portability ---
Author Organization [facility] [place] Address [address] [place] [place] [address] [place] [address] Assessment No assessment recorded. Plan of Treatment Reminders Order Date Submit Date Provider Last Modified By Organization Details Last Modified Time Details Appointments None recorded. Lab None recorded. Referral None recorded. Procedures None recorded. Surgeries None recorded. Imaging US, obstetric, biophysical profile + non-stress test 2021 022 [email or web address] [place], [facility] [address], [place], [address], 12:07:05 non-stress test 2021 022 [place], [facility] [address], [address], [place], [address], 12:07:23 Medication Orders None recorded. Patient TargetsNo targets recorded. Patient InstructionsNo instructions recorded. Reason for Referral None Reported. Results Created Date Observation Date Name Description Value Unit Range Abnormal Flag Note LastModifiedBy Organization Detail LastModifiedTime 07/16/19 22 07/16/2021 URIC ACID uric acid 4.2 mg/dL 2.3-6. 6 Not Available [facility] (Lab) [address], [place], [address], 07/17/2021 03:12:26 07/16/19 22 07/16/2021 CMP(C OMPRE HENSI VE METAB OLIC PANEL ) sodium 137 mmol/ L 133-14 6 Not Available [facility] (Lab) [address], [place], [address], 07/17/2021 03:12:28 07/16/19 22 07/16/2021 CMP(C OMPRE HENSI VE METAB OLIC PANEL ) potassium 4.2 mmol/ L 3.5-5. 1 Not Available [facility] (Lab) [address], [place], [address], 07/17/2021 03:12:28 07/16/19 22 07/16/2021 CMP(C OMPRE HENSI VE METAB OLIC PANEL ) chloride 106 mmol/ L 98-107 Not Available [facility] (Lab) [address] [facility], [place], [address], 07/17/2021 03:12:28 07/16/19 22 07/16/2021 CMP(C OMPRE HENSI VE METAB OLIC PANEL ) carbon dioxide 26 mmol/ L 21-31 Not Available [facility] (Lab) [address] [facility], [place], [address], 07/17/2021 03:12:28 07/16/19 22 07/16/2021 CMP(C OMPRE HENSI VE METAB OLIC PANEL ) anion gap 5 mmol/ L 4-13 Not Available [facility] (Lab) [address] [facility], [place], [address], 07/17/2021 03:12:28 07/16/19 22 07/16/2021 CMP(C OMPRE HENSI VE METAB OLIC PANEL ) blood urea nitrogen 6 mg/dL 7-25 low Not Available [facility] (Lab) [address] [facility], [place], [address], 07/17/2021 03:12:28 07/16/19 22 07/16/2021 CMP(C OMPRE HENSI VE METAB OLIC PANEL ) creatinine 0.64 mg/dL 0.60-1 .30 Not Available [facility] (Lab) [address] [facility], [place], [address], 07/17/2021 03:12:28 07/16/19 22 07/16/2021 CMP(C OMPRE HENSI VE METAB OLIC PANEL ) egfrcr (CKD-epi 2020) >90 mL/mi n/1.7 3_m2 >=60 Not Available [facility] (Lab) [address], [place], [address], 07/17/2021 03:12:28 07/16/19 22 07/16/2021 CMP(C OMPRE HENSI VE METAB OLIC PANEL ) calcium 8.3 mg/dL 8.3-10 .5 Not Available [facility] (Lab) [address], [place], [address], 07/17/2021 03:12:28 07/16/19 22 07/16/2021 CMP(C OMPRE HENSI VE METAB OLIC PANEL ) glucose 87 mg/dL 70-100 Not Available [facility] (Lab) [address], [place], [address], 07/17/2021 03:12:28 07/16/19 22 07/16/2021 CMP(C OMPRE HENSI VE METAB OLIC PANEL ) protein, total 5.9 g/dL 6.4-8. 3 low Not Available [facility] (Lab) [address], [place], [address], 07/17/2021 03:12:28 07/16/19 22 07/16/2021 CMP(C OMPRE HENSI VE METAB OLIC PANEL ) albumin 3.3 g/dL 3.5-5. 0 low Not Available [facility] (Lab) [address], [place], [address], 07/17/2021 03:12:28 07/16/19 22 07/16/2021 CMP(C OMPRE HENSI VE METAB OLIC PANEL ) ALT 6 units /L 9-43 low Not Available [facility] (Lab) [address], [place], [address], 07/17/2021 03:12:28 07/16/19 22 07/16/2021 CMP(C OMPRE HENSI VE METAB OLIC PANEL ) alkaline phosphatase 91 units /L 34-104 Not Available [facility] (Lab) [address], [place], [address], 07/17/2021 03:12:28 07/16/19 22 07/16/2021 CMP(C OMPRE HENSI VE METAB OLIC PANEL ) AST 7 units /L 13-39 low Not Available [facility] (Lab) [address], [place], [address], 07/17/2021 03:12:28 07/16/19 22 07/16/2021 CMP(C OMPRE HENSI VE METAB OLIC PANEL ) bilirubin, total 0.3 mg/dL 0.2-1. 2 Not Available [facility] (Lab) [address], [place], [address], 07/17/2021 03:12:28 07/16/19 22 07/16/2021 CBC W/DIF F WBC 6.6 10'3/ uL 3.6-10 .2 Not Available [facility] (Lab) [address] [place], [address], 07/17/2021 03:12:29 07/16/19 22 07/16/2021 CBC W/DIF F RBC 4.10 10'6/ uL (based on docume nted legal sex) 4.10-5 .30 Not Available [facility] (Lab) [address], [place], [address], 07/17/2021 03:12:29 07/16/19 22 07/16/2021 CBC W/DIF F HGB 10.1 g/dL (based on docume nted legal sex) 11.9-1 5.8 low Not Available [facility] (Lab) [address] [place], [address], 07/17/2021 03:12:29 07/16/19 22 07/16/2021 CBC W/DIF F HCT 34.1 % (based on docume nted legal sex) 37.4-4 8.3 low Not Available [facility] (Lab) [address], [place], [address], 07/17/2021 03:12:29 07/16/19 22 07/16/2021 CBC W/DIF F MCV 82.0 fL 82.0-9 9.0 Not Available [facility] (Lab) [address], [place], [address], 07/17/2021 03:12:29 07/16/19 22 07/16/2021 CBC W/DIF F MCH 24.0 pg 27.0-3 3.0 low Not Available [facility] (Lab) [address], [place], [address], 07/17/2021 03:12:29 07/16/19 22 07/16/2021 CBC W/DIF F MCHC 30.0 g/dL 32.0-3 6.0 low Not Available [facility] (Lab) [address], [place], [address], 07/17/2021 03:12:29 07/16/19 22 07/16/2021 CBC W/DIF F RDW 15.0 % 11.0-1 5.0 Not Available [facility] (Lab) [address], [place], [address], 07/17/2021 03:12:29 07/16/19 22 07/16/2021 CBC W/DIF F plt 236 10'3/ uL 150-45 0 Not Available [facility] (Lab) [address], [place], [address], 07/17/2021 03:12:29 07/16/19 22 07/16/2021 CBC W/DIF F MPV 10.7 fL 9.8-12 .7 Not Available [facility] (Lab) [address], [place], [address], 07/17/2021 03:12:29 01/11/20 22 07/16/2021 CBC W/DIF F NRBC's 0.00 % 0 Not Available [facility] (Lab) [address], [place], [address], 07/17/2021 03:12:29 07/16/19 22 07/16/2021 CBC W/DIF F absolute NRBCs 0.0 10'3/ uL 0 Not Available [facility] (Lab) [address], [place], [address], 07/17/2021 03:12:29 07/16/19 22 07/16/2021 CBC W/DIF F neutrophils 72.0 % 37.0-7 2.0 Not Available [facility] (Lab) [address], [place], [address], 07/17/2021 03:12:29 07/16/19 22 07/16/2021 CBC W/DIF F lymphocytes 20.0 % 16.0-4 8.0 Not Available [facility] (Lab) [address], [place], [address], 07/17/2021 03:12:29 07/16/19 22 07/16/2021 CBC W/DIF F monocytes 6.0 % 4.0-14 .0 Not Available [facility] (Lab) [address], [place], [address], 07/17/2021 03:12:29 07/16/19 22 07/16/2021 CBC W/DIF F eosinophils 2.0 % 0.0-9. 0 Not Available [facility] (Lab) [address], [place], [address], 07/17/2021 03:12:29 07/16/19 22 07/16/2021 CBC W/DIF F basophils 0.0 % 0.0-2. 0 Not Available [facility] (Lab) [address], [place], [address], 07/17/2021 03:12:29 07/16/19 22 07/16/2021 CBC W/DIF F immature granulocytes 0.0 % no define d refere nce range Not Available [facility] (Lab) [address], [place], [address], 07/17/2021 03:12:29 07/16/19 22 07/16/2021 CBC W/DIF F absolute neutrophils 4.7 10'3/ uL 1.1-6. 0 Not Available [facility] (Lab) [address] [facility], [place], [address], 07/17/2021 03:12:29 07/16/19 22 07/16/2021 CBC W/DIF F absolute lymphocytes 1.3 10'3/ uL 0.7-3. 4 Not Available [facility] (Lab) [address], [place], [address], 07/17/2021 03:12:29 07/16/19 22 07/16/2021 CBC W/DIF F absolute monocytes 0.4 10'3/ uL 0.3-1. 0 Not Available [facility] (Lab) [address] [facility], [place], [address], 07/17/2021 03:12:29 07/16/19 22 07/16/2021 CBC W/DIF F absolute eosinophils 0.1 10'3/ uL 0.0-0. 6 Not Available [facility] (Lab) [address] , [place], [address], 07/17/2021 03:12:29 07/16/19 22 07/16/2021 CBC W/DIF F absolute basophils 0.0 10'3/ uL 0.0-0. 1 Not Available [facility] (Lab) [address] [facility], [place], [address], 07/17/2021 03:12:29 07/16/19 22 07/16/2021 CBC W/DIF F absolute immature granulocytes 0.00 10'3/ uL 0.00-0 .10 2021 2:09 AM: P indic ates parti al resul ts on a panel have been relea sed. Addit ional resul ts will follo w. 2021 2:10 AM: This resul t has been final verif ied. No addit ional or gutierres ed resul ts are expec jahaira. Not Available [facility] (Lab) [address], [place], [address], 07/17/2021 03:12:29 08/06/19 22 08/06/2021 CULTU RE: GROUP B STREP SCREE N, REFLE X SUSCE PTIBI LITY result report SEE RESULT S BELOW Test: Cultu re: Group B Strep , Refle x Susce ptibi lity ([facility] ) Speci men Sourc e: Vagin a/Rec heidi Speci men Type: Vagin al/Re ctal Speci men Date: 022 2:21 PM Resul t Date: 022 2:12 PM Resul t Statu s: Final resul t Abnor mal: No Resul ting Lab: [facility] [address] [facility] [address] Tel: CULTU RE ----- ----- ----- --- No Group B strep isola jahaira at 2 days (kimberly ctive broth enhan cemen t) Not Available [facility] (Lab) [address], [place], [address], 08/09/2021 15:15:36 07/16/19 22 07/16/2021 non-s tress test No observ ation record ed. [email or web address] [place] [address], [place], [address], 07/16/2021 10:14:51 07/16/19 22 07/16/2021 US, obste tric, bioph ysica l profi le + non-s tress test No observ ation record ed. [email or web address] [place] [address], [place], [address], 07/16/2021 11:01:34 07/16/19 22 07/16/2021 US, obste tric, follo w-up No observ ation record ed. [email or web address] [address], [place], [address], 07/17/2021 15:23:19 07/23/19 22 07/23/2021 US, yogesh tric, bioph ysica l profi le + non-s tress test No observ ation record ed. [email or web address] [place] [address], [place], [address], 07/23/2021 11:16:09 07/23/19 22 07/23/2021 US, obste tric, follo w-up No observ ation record ed. [email or web address] [address], [place], [address], 07/24/2021 08:43:07 07/23/19 22 07/23/2021 non-s tress test No observ ation record ed. [email or web address] [place] [address], [place], [address], 07/23/2021 16:13:54 07/30/19 22 07/30/2021 non-s tress test No observ ation record ed. [email or web address] [place] [address], [place], [address], 08/05/2021 17:32:02 07/30/19 22 07/30/2021 US, yogesh morrow, bioph ysica l profi le + non-s tress test No observ ation record ed. [email or web address] [place] [address], [place], [address], 07/30/2021 12:44:26 07/30/19 22 07/30/2021 US, obste tric, bioph ysica l profi le + non-s tress test No observ ation record ed. JAZMIN [address], [place], [address], 07/30/2021 14:05:09 08/06/19 22 08/06/2021 non-s tress test No observ ation record ed. [email or web address] [place] [address], [place], [address], 08/06/2021 10:47:48 08/06/19 22 08/06/2021 US, obste tric, follo w-up No observ ation record ed. [email or web address], [place], [address], 08/06/2021 12:27:09 08/06/19 22 08/06/2021 US, obste tric, bioph ysica l profi le + non-s tress test No observ ation record ed. [email or web address], [place], [address], 08/06/2021 12:27:24 08/06/19 22 08/06/2021 US, obste tric, follo w-up No observ ation record ed. JAZMIN [address], [place], [address], 08/08/2021 17:15:20 08/13/19 22 08/13/2021 non-s tress test No observ ation record ed. vivienne [place] [address], [place], [address], 08/13/2021 11:45:58 08/13/19 22 08/13/2021 US, obste tric, bioph ysica l profi le + non-s tress test No observ ation record ed. [email or web address], [place], [address], 08/13/2021 13:18:15 08/13/19 22 08/13/2021 US, obste tric, bioph ysica l profi le + non-s tress test No observ ation record ed. JAZMIN [address], [place], [address], 08/16/2021 13:02:37 08/26/19 22 08/26/2021 XR, cysto gram No observ ation record ed. [email or web address] [facility] [address] [facility] [address] [facility], [place], [address], 08/27/2021 14:35:18 08/26/19 22 08/26/2021 XR, cysto gram No observ ation record ed. [address], [place], [address], 08/26/2021 20:35:21 08/26/19 22 08/26/2021 XR, cysto gram No observ ation record ed. [address] [facility] [address] [facility], [place], [address], 08/26/2021 20:35:21 Result Notes None recorded. Problems Name Problem SNOMED Code Status Onset Date Resolution Date Notes Provider Name and Address Organization Details Recorded Time Gestatio n period, 37 weeks [id number] Completed 201901/22/2021 37 weeks gestatio n of pregnanc y;Practi ce ID: 0001 Estefani Cowan MD [address], [place], [address], [facility] 12:31:21 Finding of body mass index 889961162 Completed 201901/22/2021 Body mass index (BMI) 40.0-44. 9, adult;Pr actice ID: 0001 Estefani Cowan MD [address], [place], [address], [facility] 1 12:30:[address] Concept Completed 201901/22/2021 Matern care for abnlt fetl hrt rate or rhym, 3rd tri, unsp;Pra ctice ID: 0001 Estefani Cowan MD [address], [place], [address], [facility] 1 12:33:04 Clinical finding Completed 201901/22/2021 Obesity, unspecif ied;Prac chan ID: 0001 Estefani Cowan MD [address], [place], [address], [facility] 12:30:59 Severe obesity complica ting pregnanc y [id number] Completed 201901/22/2021 Obesity complica ting pregnanc y, third trimeste r;Practi ce ID: 0001 Estefani Cowan MD [address], [place], [address], [facility] 1 12:32:57 Pregnanc y-induce d hyperten jackie Completed 201901/22/2021 Gestatio nal htn w/o signific ant proteinu den, third trimeste r;Practi ce ID: 0001 Estefani Cowan MD [address], [place], [address], [facility] 1 12:32:36 Uterine scar from previous surgery affectin g pregnanc y [id number] Active 2019 Matern care for low transver se scar from prev del;Prac chan ID: 0001 Not Available [facility] 0 15:09:21 Single liveborn born in hospital by section [id number] Completed 201901/22/2021 Single liveborn infant, delivere d by ;Practic e ID: 0001 Estefani Cowan MD [address], [place], [address], [facility] 1 12:33:02 Procedur e on genitour inary system Completed 201901/22/2021 Encounte r for surgical aftcr followin g surgery on the sys;Prac chan ID: 0001 Estefani Cowan MD [address], [place], [address], [facility] 12:32:44 Postoper ative care Completed 201901/22/2021 Encounte r for surgical aftcr followin g surgery on the sys;Prac chan ID: 0001 Estefani Cowan MD [address], [place], [address], [facility] 12:32:04 Lochia finding Completed 201901/22/2021 Encounte r for routine postpart um follow-u p;Practi ce ID: 0001 Estefani Cowan MD [address], [place], [address], [facility] 12:31:50 Normal pregnanc y in multigra esthela [id number] Completed 201601/22/2021 Encounte r for suprvsn of normal pregnanc y, third trimeste r;Record ed Elsewher e: No Locat ion: Em[facility]ie newsome [facility] S ource: [address] ccey: N Practi ce ID: 0001 Shawn lable Time: 09:00:00 AM Esetfani Cowan MD [address], [place], [address], [facility] 12:31:58 Infectio n of obstetri c surgical wound [id number] Completed 201601/22/2021 Infectio n of obstetri c surgical wound;Re corded Elsewher e: No Locat ion: Em[facility]ie newsome [facility] S ource: [address] cecy: N Practi ce ID: 0001 Shawn lable Time: 09:45:00 AM Estefani Cowan MD [address], [place], [address], [facility] 12:31:29 Routine antenata l care Completed 201001/22/2021 Supervis ion of other normal pregnanc y;Record ed Elsewher e: No Locat ion: [facility] [address] S ource: EHR [address] cecy: N Practi ce ID: 0001 Shawn lable Time: 03:30:00 PM Estefani Cowan MD [address], [place], [address], [facility] 12:32:47 Pregnanc y test positive [id number] Completed 201001/22/2021 Pregnanc y examinat ion or test, positive result;R ecorded Elsewher e: No Locat ion: [facility] [address] S ource: [address] cecy: N Loriti ce ID: 0001 Shawn lable Time: 03:30:00 PM Estefani Cowan MD [address], [place], [address], [facility] 12:32:33 Atypical squamous cells of undeterm ined signific ance on cervical Papanico laou smear [id number] Completed 201801/22/2021 Atyp squam cell of undet signfc cyto smr crvx (ASC-US) ;Recorde d Elsewher e: No Locat ion: [facility] [address] S ource: EHR [address] cecy: N Loriti ce ID: 0001 Shawn lable Time: 11:36:59 AM Estefani Cowan MD [address], [place], [address], [facility] 12:30:31 Gestatio n period, 33 weeks 55154518 Completed 201801/22/2021 33 weeks gestatio n of pregnanc y;Record ed Elsewher e: No [facility]: [facility] [address] cecy: N Practi ce ID: 0001 Shawn lable Time: 09:30:00 AM Estefani Cowan MD [address], [place], [address], [facility] 1 12:31:06 Lynne ry postpart um mood disturba nce [id number] Completed 201701/22/2021 Postpart um mood disturba nce;Juaquin rded Elsewher e: No Locat ion: [facility] [address] S ource: EHR [address] cecy: N Practi ce ID: 0001 Shawn lable Time: 01:00:00 PM Estefani Cowan MD [address], [place], [address], [facility] 1 12:33:36 Infectio n screenin g Completed 201601/22/2021 Encounte r for screenin g for oth infec/pa rastc diseases ;Recorde d Elsewher e: No Locat ion: [facility] [address] S ource: EHR [address] cecy: N Practi ce ID: 0001 Shawn lable Time: 03:00:00 PM Estefani Cowan MD [address], [place], [address], [facility] 1 12:31:31 Syphilis test finding [id number] Completed 201601/22/2021 Encntr screen for infectio ns w sexl mode of transmis s;Record ed Elsewher e: No Locat ion: [facility] [address] S ource: EHR [address] cecy: N Practi ce ID: 0001 Shawn lable Time: 03:00:00 PM Estefani Cowan MD [address], [place], [address], [facility] 1 12:33:29 Alopecia [id number] Completed 201201/22/2021 Alopecia , unspecif ied;Juaquin rded Elsewher e: No [facility]: [facility] [address] cecy: N Practi ce ID: 0001 Shawn lable Time: 11:30:00 AM Estefani Cowan MD [address], [place], [address], [facility] 1 12:30:20 Secondar y amenorrh ea [id number] Completed 201601/22/2021 Secondar y amenorrh ea;Recor ded Elsewher e: No Locat ion: [facility] [address] S ource: EHR [address] cecy: N Practi ce ID: 0001 Shawn lable Time: 03:00:00 PM Estefani Cowan MD [address], [place], [address], [facility] 1 12:32:53 Postpart um care Completed 201201/22/2021 Routine postpart um follow-u p;Record ed Elsewher e: No Locat ion: [facility] [address] S ource: EHR [address] cecy: N Loriti ce ID: 0001 Shawn lable Time: 03:00:00 PM Estefani Cowan MD [address], [place], [address], [facility] 1 12:33:23 Human papillom avirus deoxyrib onucleic acid detected , high risk on cervical specimen [id number] Active 2016 Cervical high risk HPV DNA test positive ;Recorde d Elsewher e: No Locat ion: [facility] [address] S ource: EHR [address] cecy: N Practi ce ID: 0001 Shawn lable Time: 09:21:53 AM Not Available [facility] 0 15:09:23 Antenata l screenin g for malforma tion Completed 201801/22/2021 Encounte r for antenata l screenin g for malforma tions;Re corded Elsewher e: No Locat ion: [facility] S ource: [address] cecy: N Practi ce ID: 0001 Shawn lable Time: 10:00:00 AM Estefani Cowan MD [address], [place], [address], [facility] 12:30:26 Morbid obesity 110987204 Completed 201101/22/2021 Obesity, Morbid;R ecorded Elsewher e: No [facility] S ource: [address] cecy: N Loriti ce ID: 0001 Shawn lable Time: 11:00:00 AM Estefani Cowan MD [address], [place], [address], [facility] 12:31:55 Screenin g for malignan t neoplasm of cervix Completed 201601/22/2021 Screenin g for cervical ca;Recor ded Elsewher e: No Locat ion: [facility] [address] S ource: EHR Edge Sawyer cecy: Catherine Conner ce ID: [id number] Shawn lable Time: 03:00:00 PM Estefani Cowan MD [address], [place], [address], [facility] 12:32:50 Gestatio n period, 31 weeks [id number] Completed 201801/22/2021 31 weeks gestatio n of pregnanc y;Record ed Elsewher e: No Locat ion: [facility] [address] S ource: EHR Edge Sawyer cecy: Catherine Conner ce ID: [id number] Shawn lable Time: 09:30:00 AM Estefani Cowan MD [address], [place], [address], [facility] 12:31:04 Irregula r intermen strual bleeding [id number] Completed 201201/22/2021 Metrorrh agia;Rec orded Elsewher e: No Locat ion: [facility] Source: EHR Edge Sawyer cecy: Catherine Conner ce ID: [id number] Shawn lable Time: 10:15:00 AM Estefani MD [address], [place], [address], [facility] 12:31:39 Gestatio n period, 35 weeks [id number] Completed 201801/22/2021 35 weeks gestatio n of pregnanc y;Record ed Elsewher e: No Locat ion: [facility] [address] S ource: EHR Edge Sawyer cecy: N Practi ce ID: [id number] Shawn lable Time: 03:00:00 PM Estefani Cowan MD [address], [place], [address], [facility] 12:31:19 Missed miscarri age [id number] Completed 201401/22/2021 Missed AB;Recor ded Elsewher e: No Locat ion: [facility] [address] S ource: EHR Edge Sawyer cecy: N Practi ce ID: [id number] Shawn lable Time: 11:30:00 AM Estefani Cowan MD [address], [place], [address], [facility] 12:31:53 Pregnanc y detectio n examinat ion Completed 201601/22/2021 Encounte r for pregnanc y test, result positive ;Recorde d Elsewher e: No Locat ion: [facility] [address] S ource: EHR Edge Sawyer cecy: N Loriti ce ID: [id number] Shawn lable Time: 01:30:00 PM Estefani Cowan MD [address], [place], [address], [facility] 12:32:27 Antenata l screenin g Completed 201801/22/2021 Encounte r for other specifie d antenata l screenin g;Record ed Elsewher e: No Locat ion: [facility] [address] S ource: EHR Edge Sawyer cecy: N Practi ce ID: 0001 Shawn lable Time: 10:45:00 AM MD [address], [place], [address], [facility] 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 12:33:08 Irregula r periods [id number] Completed 201201/22/2021 Irregula r menstrua l cycle;Re corded Elsewher e: No Locat ion: Emilie newsome [facility] S ource: EHR Edge Sawyer cecy: N Ubaldo ce ID: 0001 Shawn lable Time: 11:30:00 AM Estefani Cowan MD [address], [place], [address], [facility] 12:31:42 Uterine size for dates discrepa ncy Completed 201601/22/2021 Uterine size-seth e discrepa ncy, third trimeste r;Record ed Elsewher e: No Locat ion: Emilie newsome [facility] S ource: EHR Edge Sawyer cecy: N Loriti ce ID: 0001 Shawn lable Time: 09:30:00 AM Estefani Cowan MD [address], [place], [address], [facility] 12:33:46 Gestatio n period, 36 weeks [id number] Completed 201901/22/2021 36 weeks gestatio n of pregnanc y;Record ed Elsewher e: No Locat ion: Emilie newsome [facility] S ource: EHR Edge Sawyer cecy: N Loriti ce ID: 0001 Shawn lable Time: 03:00:00 PM Estefani Cowan MD [address], [place], [address], [facility] 1 12:31:17 Family planning surveill ance Completed 201201/22/2021 Contrace ptive surveill ance, unspecif ied;Juaquin rded Elsewher e: No Locat ion: [facility] S ource: EHR Edge Sawyer cecy: N Practi ce ID: 0001 Shawn lable Time: 04:00:00 PM Estefani Cowan MD [address], [place], [address], [facility] 1 12:30:51 Pregnanc y test negative [id number] Completed 201701/22/2021 Encounte r for pregnanc y test, result negative ;Recorde d Elsewher e: No Locat ion: [facility] [address] S ource: EHR Edge Sawyer cecy: N Loriti ce ID: 0001 Shawn lable Time: 11:00:00 AM Estefani Cowan MD [address], [place], [address], [facility] 1 12:32:25 Gestatio n period, 28 weeks [id number] Completed 201601/22/2021 28 weeks gestatio n of pregnanc y;Record ed Elsewher e: No Locat ion: [facility] [address] S ource: EHR Edge Sawyer cecy: N Practi ce ID: 0001 Shawn lable Time: 09:30:00 AM Estefani Cowan MD [address], [place], [address], [facility] 1 12:31:02 Speciali zed medical examinat ion Completed 201001/22/2021 Gynecolo gical Examinat ion;Juaquin rded Elsewher e: No Locat ion: [facility]ilie [facility] S ource: EHR Edge Sawyer cecy: N Practi ce ID: 0001 Shawn lable Time: 03:30:00 PM Estefani Cowan MD [address], [place], [address], [facility] 1 12:33:11 Transien t hyperten jackie of pregnanc y - not delivere d [id number] Completed 201201/22/2021 Antepart um transien t hyperten jackie;Rec orded Elsewher e: No Locat ion: Emilie [facility] S ource: EHR Edge Sawyer cecy: N Ubaldo ce ID: 0001 Shawn lable Time: 04:00:00 PM Estefani Cowan MD [address], [place], [address], [facility] 12:33:33 Gestatio n period, 34 weeks [id number] Completed 201801/22/2021 34 weeks gestatio n of pregnanc y;Record ed Elsewher e: No Locat ion: Emilie [facility] S ource: EHR Edge Sawyer cecy: N Ubaldo ce ID: 0001 Shawn lable Time: 09:00:00 AM Estefani Cowan MD [address], [place], [address], [facility] 1 12:31:09 Body mass index 30+ - obesity [id number] Completed 201601/22/2021 Body mass index (BMI) 34.0-34. 9, adult;Re corded Elsewher e: No [facility]: EHR Edge Sawyer cecy: N Ubaldo ce ID: 0001 Shawn lable Time: 03:00:00 PM Estefani Cowan MD [address], [place], [address], [facility] 1 12:30:44 Leukocyt osis [id number] Completed 201401/22/2021 LEUKOCYT OSIS NOS;Juaquin rded Elsewher e: No Locat ion: Emilie [facility] S ource: EHR Edge Sawyer cecy: N Practi ce ID: 0001 Shawn lable Time: 04:45:00 PM Estefani Cowan MD [address], [place], [address], [facility] 1 12:31:48 anatomy study Completed 201101/22/2021 SCRN ANATMC SURVEY;R ecorded Elsewher e: No Locat ion: Emiile newsome [facility] S ource: EHR Edge Sawyer cecy: N Loriti ce ID: 0001 Shawn lable Time: 01:00:00 PM Estefani Cowan MD [address], [place], [address], [facility] 12:30:54 Urinary tract infectio us disease [id number] Completed 201401/22/2021 Urinary Tract Infectio n;Record ed Elsewher e: No Locat ion: Emilie newsome [facility] S ource: EHR Edge Sawyer cecy: N Loriti ce ID: 0001 Shawn lable Time: 04:45:00 PM Estefani Cowan MD [address], [place], [address], [facility] [address] 12:33:[address] Concept Completed 201701/22/2021 Encntr for general adult medical exam w/o abnormal findings ;Recorde d Elsewher e: No Locat ion: Emilie newsome [facility] S ource: EHR Edge Sawyer cecy: N Loriti ce ID: 0001 Shawn lable Time: 09:45:00 AM Estefani Cowan MD [address], [place], [address], [facility] 1 12:33:06 Implanta tion of subcutan eous contrace ptive Completed 201201/22/2021 Insertio n of implanta ble subderma l contrace ptive;Re corded Elsewher e: No Locat ion: Emilie newsome [facility] S ource: EHR Edge Sawyer cecy: N Practi ce ID: 0001 Shawn lable Time: 04:15:00 PM Estefani Cowan MD [address], [place], [address], [facility] 1 12:31:37 Vaginiti s and vulvovag initis Completed 201201/22/2021 Vaginiti s;Record ed Elsewher e: No Locat ion: [facility] [address] S ource: EHR Edge Sawyer cecy: N Practi ce ID: 0001 Shawn lable Time: 11:30:00 AM Estefani Cowan MD [address], [place], [address], [facility] 1 12:33:49 Ultrason ography Completed 201201/22/2021 Antenata l screenin g for malforma tion using ultrason ics;Juaquin rded Elsewher e: No Locat ion: [facility] [address] S ource: EHR Edge Sawyer cecy: N Loriti ce ID: 0001 Shawn lable Time: 02:30:00 PM Estefani Cowan MD [address], [place], [address], [facility] 12:33:38 Congenit al malforma tion [id number] Completed 201201/22/2021 Antenata l screenin g for malforma tion using ultrason ics;Juaquin rded Elsewher e: No [facility]: EHR Edge Sawyer cecy: N Practi ce ID: 0001 Shawn lable Time: 02:30:00 PM Estefani Cowan MD [address], [place], [address], [facility] 1 12:30:47 Dysuria [id number] Completed 201401/22/2021 Dysuria; Recorded Elsewher e: No [facility] S ource: EHR Edge Sawyer cecy: N Practi ce ID: 0001 Shawn lable Time: 04:45:00 PM Estefani Cowan MD [address], [place], [address], [facility] 1 12:30:50 Threaten ed miscarri age [id number] Completed 201401/22/2021 Threaten ed ;Recorde d Elsewher e: No [facility] S [facility]: EHR Edge Sawyer cecy: N Practi ce ID: 0001 Shawn lable Time: 04:30:00 PM Estefani Cowan MD [address], [place], [address], [facility] 12:33:31 Primigra esthela [id number] Completed 201001/22/2021 Supervis ion of normal first pregnanc y;Practi ce ID: 0001 Estefani Cowan MD [address], [place], [address], [facility] 12:32:41 Glucose toleranc e test during pregnanc y - baby not yet delivere d outside referenc e range [id number] Completed 201101/22/2021 Gestatat ional Diabetes Antepart um;Pract ice ID: 0001 Estefani Cowan MD [address], [place], [address], [facility] 12:30:17 Benign essentia l hyperten jackie complica ting pregnanc y, childbir th and the puerperi um - not delivere d [id number] Completed 201101/22/2021 Hyperten jackie During Pregnanc y;Practi ce ID: 0001 Estefani Cowan MD [address], [place], [address], [facility] 1 12:30:42 Poor growth affectin g manageme nt [id number] Completed 03/30/ 2012 01/22/2021 GROWTH POOR SGA;Prac chan ID: 0001 Estefani Cowan MD [address], [place], [address], [facility] 1 12:32:01 Labor and delivery complica jahaira by heart rate anomaly [id number] Completed 201101/22/2021 HEART RATE NON REASSURI NG;Pract ice ID: 0001 Estefani Cowan MD [address], [place], [address], [facility] 1 12:31:45 Single live from singleto n pregnanc y [id number] Completed 201101/22/2021 Mother with single liveborn ;Practic e ID: 0001 Estefani Cowan MD [address], [place], [address], [facility] 12:32:59 Uterine scar from previous surgery in pregnanc y, childbir th and the puerperi um - delivere d [id number] Completed 201201/22/2021 Previous delivery , antepart um conditio n or complica tion;Pra ctice ID: 0001 Estefani Cowan MD [address], [place], [address], [facility] 1 12:33:44 Subcutan eous contrace ptive implant present [id number] Completed 201301/22/2021 Removal Or Check Nexplano n;Practi ce ID: 0001 Estefani Cowan MD [address], [place], [address], [facility] 12:33:13 Prematur e rupture of membrane s [id number] Completed 201601/22/2021 Full-ter m noa ROM, unsp time betw rupture and onset labor;Pr actice ID: 0001 Estefani Cowan MD [address], [place], [address], [facility] 1 12:32:38 Gestatio n period, 38 weeks [id number] Completed 201601/22/2021 38 weeks gestatio n of pregnanc y;Practi ce ID: 0001 Estefani Cowan MD [address], [place], [address], [facility] 1 12:31:24 Pregnanc y [id number] Completed 202008/29/2021 Jaqueline Lambtieh l null, [facility] 2 17:20:15 Steriliz ation requeste d [id number] Active salpinge ctomy with R CS 08/19 Jaqueline Lambtieh l null, [facility] 2 17:20:06 Past pregnanc y history of pre-ecla mpsia 1522941022 82330 Active Jaqueline Bohsangeetanstieh l null, [facility] 2 17:20:06 Deliveri es by [id number] Active x4, plan R CS with salpinge ctomy - [place] signed IPDA on 06/20, schedule d for 08/19 Jaqueline Bohsangeetanstieh l null, [facility] 2 17:20:06 Body mass index 40+ - severely obese 592356981 Active antenata l testing 34wks, discusse d risks Jaqueline Bohsangeetanstieh l null, [facility] 2 17:20:06 Chronic hyperten jackie in obstetri c context 0299988 Active ASA, antenata l testing, baseline PIH labs Jaqueline Lambtieh l null, [facility] 2 17:20:06 Steriliz ation requeste d [id number] Completed salpinge ctomy with R CS 08/19 Jaqueline Linknstieh l null, [facility] 2 17:20:06 Past pregnanc y history of pre-ecla mpsia [id number] 05552 Completed Jaqueline dixon null, [facility] 2 17:20:06 Deliveri es by [id number] Completed x4, plan R CS with salpinge ctomy - [place] signed IPDA on 06/20, schedule d for 08/19 Jaqueline dixon null, [facility] 2 17:20:06 Body mass index 40+ - severely obese 593222446 Completed antenata l testing 34wks, discusse d risks Jaqueline dixon null, [facility] 2 17:20:06 Chronic hyperten jackie in obstetri c context [id number] Completed ASA, antenata l testing, baseline PIH labs Jaqueline dixon [facility], [facility] 2 17:20:06 Anemia [id number] Completed 1 tab slowfe daily starting 07/19 Jaqueline dixon [facility] 2 17:20:06 Problem Notes None recorded. Procedures Surgical History Date Name Laterality Status Provider Name and Address Organization Details Recorded Time 2 SECTION (SURG) completed Marilyn Bryan [facility] 08/20/2021 09:58:55 1 Date of Last Pap Smear completed Peg Piper [facility] 03/19/2021 11:15:39 0 section completed Ana Leon [facility] 07/23/2021 10:19:31 3 section completed Ana Leon [facility] 07/23/2021 10:19:13 2 section completed Ana Leon [facility] 07/23/2021 10:18:59 section completed Anadeshawn Leon [facility] 07/23/2021 10:19:24 Imaging Results None recorded. Procedure Notes None recorded. Medical Equipment None Reported. Allergies No known drug allergies Medications Name Sig Start Date Stop Date Status Note LastModified by Organization Details LastModified Time amoxicill in 500 mg capsule take 1 capsule by oral route 3 times every day for 10 days 02/16 completed Prescrib ed Elsewher e: No Locat ion: [facility] odify By: cmedical Encount er DateTime : 02/08/20 15 03:53:58 PM Not Available Not Available Not Available Augmentin 875 mg-125 mg tablet take 1 tablet by oral route every 12 hours 06/10 completed Prescrib ed Elsewher e: No Locat ion: [facility] odify By: ike chaseer DateTime : 05/11/20 17 09:45:00 AM Not Available Not Available Not Available terconazo le 0.4 % vaginal cream Insert 1 applicat orful every day by vaginal route for 7 days. 03/19 completed Not Available Not Available Not Available azithromy julee 250 mg tablet take 2 tablet (500MG) by oral route every day for 1 day then 1 tablet (250 mg) by oral route once daily for 4 days 03/15 completed Prescrib ed Elsewher e: No Locat ion: [facility] odify By: omedical Encount er DateTime : 03/11/20 13 03:26:13 PM Not Available Not Available Not Available fluconazo le 150 mg tablet active Not Available Not Available Not Available hydrocodo ne 5 mg-acetam inophen 325 mg tablet TAKE 1 TABLET BY MOUTH EVERY 4 HOURS NEEDED FOR PAIN active Not Available Not Available No t Available Metrogel Vaginal 0.75 % (37.5 mg/5 gram) insert 1 applicat orful (37.5MG) by vaginal route every day at bedtime 03/15 completed Prescrib ed Elsewher e: No Locat ion: Emilie newsome [facility] odify By: dayan Kaminski er DateTime : 03/11/20 13 03:26:13 PM Not Available Not Available Not Available progester one micronize d 200 mg capsule TAKE 1 CAPSULE BY MOUTH ONCE DAILY FOR 12 DAYS 01/22 completed Not Available Not Available Not Available furosemid e 20 mg tablet take 1 tablet by oral route every day 12/14 completed Prescrib ed Elsewher e: Yes Loca tion: Emilie newsome [facility] odify By: sissy vela DateTime : 12/11/19 12 03:15:00 PM Not Available Not Available Not Available Vitamin D2 1,250 mcg (50,000 unit) capsule take 1 capsule (46791DC ITS) by oral route every week 12/14 completed Prescrib ed Elsewher e: No Locat ion: Emilie newsome [facility] odify By: sissy vela DateTime : 08/25/19 13 10:46:28 AM Not Available Not Available Not Available metoclopr amide 10 mg tablet 05/14 completed Not Available Not Available Not Available Vitamin 27 mg iron-0.8 mg tablet Take 1 tablet every day by oral route. 2020 active Not Available Not Available Not Avai lable Zithromax 500 mg tablet take 2 tablet by oral route once 01/01 completed Prescrib ed Elsewher e: No Locat ion: Emilie newsome [facility] odify By: felisha dodson DateTime : 10/07/19 17 12:47:00 PM Not Available Not Available Not Available nitrofura ntoin monohydra te/macroc rystals 100 mg capsule TAKE 1 CAPSULE BY MOUTH EVERY 12 HOURS WITH FOOD DIRECTED 08/26 completed Not Available Not Available Not Available Triveen-D uo DHA 29 mg-1 mg-400 mg oral pack take 2 by Oral route every day for 30 days 03/30 completed Prescrib ed Elsewher e: No Locat ion: Emilie newsome [facility] odify By: erika parkinson DateTime : 03/01/20 13 11:30:00 AM Not Available Not Available Not Available Venatal Complete DHA 27 mg-1 mg-430 mg tablet and capsule,d elay releas take 2 by Oral route every day 12/14 completed Prescrib ed Elsewher e: No Locat ion: [facility] odify By: sissy vela DateTime : 06/14/20 12 11:30:00 AM Not Available Not Available Not Available Incassia 0.35 mg tablet 05/14 completed Not Available Not Available Not Available Se-Huseyin 19 29 mg iron-1 mg tablet take 1 tablet by oral route every day 12/14 completed Prescrib ed Elsewher e: No Locat ion: [facility] odify By: sissy vela DateTime : 06/15/20 12 04:28:27 PM Not Available Not Available Not Available Vitals Date Recorded Body height Body mass index (BMI) Body weight Systolic blood pressure Diastolic blood pressure Provider Name and Address Organization Details Last Updated DateTime 08/13/2021 165.1 cm 54.7 kg/m2 800979.8 8973 g 141 mm[Hg] 85 mm[Hg] Abbi Nelson [facility] 2 11:33:32 Date Recorded Body weight Provider Name an d Address Organization Details Last Updated DateTime 08/26/2021 052575.10812 g Jaqueline Lowry [facility] 08/29/2021 17:20:13 Date Recorded Body height Body mass index (BMI) Systolic blood pressure Diastolic blood pressure Systolic blood pressure Diastolic blood pressure Provider Name and Address Organization Details Last Updated DateTime 2 165.1 cm 52.9 kg/m2 147 mm[Hg] 93 mm[Hg] 143 mm[Hg] 84 mm[Hg] Elissa Nicolas [facility] 2 12:32:44 Date Recorded Body height Body mass index (BMI) Body weight Systolic blood pressure Diastolic blood pressure Provider Name and Address Organization Details Last Updated DateTime 09/23/2021 165.1 cm 50.9 kg/m2 644020.2 7 g 140 mm[Hg] 80 mm[Hg] Elissa Nicolas [facility] 11:33:32 Social History Question Answer Notes LastModified by Organizat ion Details LastModified Time Tobacco Smoking Status Unknown If Ever Smoked Ana Leon mike [facility] 04/16/2021 13:16:44 Are You Blind Or Do You Have Difficulty Seeing? No [email or web address] Information not available 04/16/2021 What Is Your Level Of Caffeine Consumption? Occasional [email or web address] Information not available 04/16/2021 In The 14 Days Before Symptom Onset, Have You Had Close Contact With A Laboratory-confir med COVID-19 While That Case Was Ill? No [email or web address] Information not available 04/16/2021 In The 14 Days Before Symptom Onset, Have You Had Close Contact With A Person Who Is Under Investigation For COVID-19 While That Person Was Ill? No [email or web address] Information not available 04/16/2021 Have You Been To An Area Known To Be High Risk For COVID-19? No [email or web address] Information not available 04/16/2021 Are You Deaf Or Do You Have Serious Difficulty Hearing? No [email or web address] Information not available 04/16/2021 What Type Of Diet Are You Following? REGULAR [email or web address] Information not available 07/23/2021 Have You Ever Been Counseled For Unhealthy Alcohol Use? No Information not available 04/16/2021 Do You Use Your Seat Belt Or Car Seat Routinely? Yes [email or web address] Information not available 04/16/2021 Do You Have Smoke And Carbon Monoxide Detectors In Your Home? Yes [email or web address] Information not available 04/16/2021 Do You Use Sunscreen Routinely? Yes [email or web address] Information not available 04/16/2021 Has Tobacco Cessation Counseling Been Provided? No Information not available 04/16/2021 Sex: Unknown Functional Status Question Answer Note LastModified by Organizat ion Details LastModified Time Do you use any illicit or recreational drugs? No Information not available 04/16/2021 Do you or have you ever used any other forms of tobacco or nicotine? No [email or web address] Information not available 04/16/2021 What is your level of alcohol consumption? Occasional [email or web address] Information not available 04/16/2021 Are you able to walk? [email or web address] Information not available 04/16/2021 What is your exercise level? Occasional [email or web address] Information not available 07/23/2021 Mental Status Question Answer Note LastModified by Organization D etails LastModified Time Do you feel stressed (tense, restless, nervous, or anxious, or unable to sleep at night)? [id number] [email or web address] Information not available 04/16/2021 Family History Relationship Description Onset Age of this Age Resolved Age Notes LastModified by Organization Details LastModified Time Mother Diabetes mellitus [email or web address] Not available 2020 10:33:47 Mother Hypertensive disorder [email or web address] Not available 2020 10:34:00 Maternal Grandmother Diabetes mellitus [email or web address] Not available 2020 10:33:47 Maternal Grandmother Hypertensive disorder [email or web address] Not available 2020 10:34:11 Maternal Grandmother Malignant neoplasm of ovary [email or web address] Not available 2020 10:34:46 Father Hypertensive disorder [email or web address] Not available 2020 10:34:19 Medical History Condition Response Allergies (Food, seasonal, environmental ) N Other N Drug/Latex Allergies/Reactions N Breast Cancer N Blood Transfusion N Lung Disease N Dermatologic Disorders N Defects or Inherited Disease N Breast Problem N Gestational Diabetes N Hematologic disorders N Anesthesia Complications N History of STI Y Deep Vein Thrombosis N Polycystic ovary syndrome N Anxiety Disorder N Autoimmune disease N Arthritis N Polyps N Infertility N Acid Reflux (GERD) N History of abnormal pap Y Cancer N Varicosities N Stroke N Neurologic/Epilepsy N Endometriosis N High Cholesterol N Fibromyalgia N Headaches N Kidney Disease N Heart Problems N Thyroid Problems N Kidney or Bladder Problems N GI Problems N Eating Disorder N Anemia N Art (IVF or FET) N Psychiatric Illness N Ovarian Cancer N Diabetes N Pulmonary (TB, Asthma) N Hepatitis/Liver Disease N No Past Medical History Y Eczema N Urinary Tract Infection N Abuse/Domestic Violence N Asthma N Trauma/Violence N Depression/ depression N Heart Disease N Pre-Eclampsia N Hypertension N Osteoporosis N Thrombophilias N Gynecological History Statement/Question Response Abnormal Pap Yes Date of Last Mammogram Most Recent Bone Density Date of LMP 09/13/2020 Sexually Active? Y STIs/STDs Yes Date of Last Pap Smear 01/22/2021 Sexual Problems? N Current Control Method Sterilizati on Obstetrics History GPAL:G 6 P 5 0 1 5 Type Value Full Term 5 Spontaneous 1 Living 5 Total 6 Past Encounters Encounter ID Performer Location Encounter Start Date Encounter Closed Date Diagnosis/Indication Diagnosis SNOMED-CT Code Diagnosis ICD10 Code Diagnosis Note [id number] Cornel Hernandez MD [facility] [address],[place] [address] 10/16/2020 11:50:36 10/16/2020 12:39:20 Abnormal uterine bleeding [id number] 9100 N93.9 [id number] Estefani Cowan MD [facility] [address],[place] [address] 01/08/2021 14:01:45 01/08/2021 14:32:34 Uncertain viability of [id number] O36.80X0 Z3A.01 [id number] Estefani Cowan MD [facility] [address],[place] [address] 01/22/2021 12:03:56 01/22/2021 13:11:21 [id number] Estefani Cowan MD [facility] [address],[place] [address] 01/22/2021 12:04:55 01/22/2021 13:56:35 test positive 449759582 Z32.01 Body mass index 40+ - severely obese 547100874 Z68.43 Past pregn can history of pre-eclampsia 0355825887 82159 Z87.59 Past pregn can history of section 906093574 Z98.890 x4 Sterilizat ion requested 294308021 Z30.2 History of abnormal cervical Papanicolaou smear 180239673 Z87.42 Candidiasis of vagina 72 184384 B37.3 [id number] Estefani Cowan MD [facility] [address],[place] [address] 02/19/2021 10:37:07 02/19/2021 11:09:35 screening 260916168 Z36.82 18009 MD [facility] [address],[place] [address] 02/19/2021 10:37:57 02/19/2021 11:54:29 Routine care 892049175 Z34.02 Body mass index 40+ - severely obese 990235788 Z68.43 Chronic hy pertension in obstetric context 5032046 I10 Deliveries by [id number] O82 Past pregn can history of pre-eclampsia 2690029908 04149 Z87.59 14013 Deanna Mccain [facility] [address],[place] [address] 03/19/2021 11:09:24 03/19/2021 12:10:40 Routine care 656128673 Z34.92 [id number] Deanna Mccain [facility] [address],[place] [address] 04/16/2021 10:06:26 04/19/2021 10:17:04 Routine care 919243008 Z34.92 [id number] Cornel Hernandez MD [facility] [address],[place] [address] 04/16/2021 10:05:15 04/16/2021 11:19:14 screening for malformation 833852321 Z36.3 94352 Sadaf Cervantes [facility] [address],[place] [address] 04/16/2021 13:14:48 04/16/2021 13:40:23 Routine care 943449305 Z34.92 [id number] Estefani Cowan MD [facility] [address],[place] [address] 05/14/2021 09:37:02 05/14/2021 10:38:23 screening 884889938 Z36.2 20076 MD George Collins [address],[place] [address] 05/14/2021 09:37:28 05/14/2021 11:17:06 Body mass index 40+ - severely obese 704336959 Z68.43 Chronic hy pertension in obstetric context 3926252 I10 Deliveries by [id number] O82 Past pregn can history of pre-eclampsia 5893872924 72634 Z87.59 16489 Estefani Cowan MD [facility] [address],[place] [address] 06/10/2021 10:39:31 06/10/2021 12:59:38 screening 751677609 Z36.2 [id number] Estefani Cowan MD [facility] [address],[place] [address] 06/10/2021 10:40:05 06/10/2021 12:21:22 Chronic hypertension in obstetric context 3836680 I10 Body mass index 40+ - severely obese 612385185 Z68.43 Deliveries by [id number] O82 Sterilizat ion requested 119499154 Z30.2 53613 Deanna Mccain [facility] [address],[place] [address] 06/25/2021 11:01:26 06/25/2021 11:57:58 Routine care 236613148 Z34.92 Chronic hy pertension complicating AND/OR reason for care during 69903787 O16.9 36912 [facility] [address],[place] [address] 07/09/2021 11:34:45 07/09/2021 15:42:09 Routine care 607173885 Z34.92 [id number] Cornel Hernandez MD [facility] [address],[place] [address] 07/09/2021 10:14:48 07/09/2021 11:54:15 Maternal obesity complicating , childbirth and the puerperium, antepartum 3154686015 07 O99.213 O36.8330 Z3A.32 [id number] Cornel Hernandez MD [facility] [address],[place] [address] 07/09/2021 10:15:30 07/09/2021 13:56:16 Chronic hypertension complicating AND/OR reason for care during 49968132 O16.9 [id number] Deanna Mccain [facility] [address],[place] [address] 07/16/2021 09:39:18 07/16/2021 11:46:09 Routine care 699101902 Z34.92 - induced hypertension 30105891 O13.9 47445 Cornel Hernandez MD [facility] [address],[place] [address] 07/16/2021 09:38:39 07/16/2021 11:19:10 Maternal obesity complicating , childbirth and the puerperium, antepartum 3379842308 07 O99.213 65902 oCrnel Hernandez MD [facility] [address],[place] [address] 07/16/2021 09:39:01 07/16/2021 11:18:11 Maternal obesity complicating , childbirth and the puerperium, antepartum 8828117814 07 O99.213 O10.013 Z3A.33 61781 Deanna Mccain [facility] [address],[place] [address] 07/23/2021 09:42:48 07/23/2021 12:01:49 Routine care 197405282 Z34.92 [id number] Cornel Hernandez MD [facility] [address],[place] [address] 07/23/2021 09:41:46 07/23/2021 16:34:50 Chronic hypertension complicating AND/OR reason for care during 49475146 O16.9 08190 Cornel Hernandez MD [facility] [address],[place] [address] 07/23/2021 09:42:35 07/23/2021 11:04:37 Maternal obesity complicating , childbirth and the puerperium, antepartum 8225590275 07 O99.213 O10.013 Z3A.34 [id number] MD George Collins [address],[place] [address] 07/30/2021 10:22:15 07/30/2021 11:57:39 Chronic hypertension complicating AND/OR reason for care during 12324100 O16.9 [id number] MD O[facility] [place] [address],[place] [address] 07/30/2021 10:22:53 07/30/2021 11:59:53 Chronic hypertension complicating AND/OR reason for care during 76946780 O10.013 O99.213 Z3A.35 44782 Estefani Cowan MD [facility] [address],[place] [address] 07/30/2021 10:23:06 07/30/2021 13:34:01 Chronic hypertension in obstetric context 1799614 I10 Deliveries by [id number] O82 Body mass index 40+ - severely obese 609559667 Z68.43 [id number] MD Oksana [place] [address],[place] [address] 08/06/2021 10:18:34 08/06/2021 10:55:54 Maternal obesity complicating , childbirth and the puerperium, antepartum 9564286854 07 O99.213 95630 MD George [place] [address],[place] [address] 08/06/2021 10:19:02 08/06/2021 11:25:27 Maternal obesity complicating , childbirth and the puerperium, antepartum 6780043673 07 O99.213 O36.8330 Z3A.36 07971 MD Oksana [place] [address],[place] [address] 08/06/2021 10:19:15 08/06/2021 12:20:10 Routine care 040229243 Z34.93 [id number] MD Oksana [place] [address],[place] [address] 08/13/2021 10:19:49 08/13/2021 12:08:47 Chronic hypertension in obstetric context 2399370 I10 Past pregn can history of pre-eclampsia 7740069116 79311 Z87.59 Deliveries by [id number] O82 Headache 65682745 R51.9 Reduced fe mervat movement 896347710 O36.8199 51696 Estefani Cowan MD [facility] [address],[place] [address] 08/13/2021 10:20:23 08/13/2021 12:07:05 Maternal obesity complicating , childbirth and the puerperium, antepartum 2882984690 07 O99.213 O36.8330 O10.413 Z3A.37 08349 Estefani Cowan MD [facility] [address],[place] [address] 08/13/2021 10:22:00 08/13/2021 12:07:23 Maternal obesity complicating , childbirth and the puerperium, antepartum 3388963994 07 O99.213 31850 Cornel Hernandez MD [facility] [address],[place] [address] 08/20/2021 10:05:26 08/20/2021 11:01:35 [id number] Cornel Hernandez MD [facility] [address],[place] [address] 08/26/2021 12:24:52 08/26/2021 12:57:24 Postoperative care 919884081 Z48.89 This patient is a 30-year-ol d female who presents for postop follow-up. She is 1 week postop from a delivery. Her incision is clean dry and intact. She has no complaints . Her bleeding is minimal. She denies any nausea, vomiting, fever, chills. She denies any chest pain or shortness of breath. Her baby is doing well. Her mood is good. Gillette catheter was in place, it was causing her irritation , she was sent to Radiology for cystogram, they will call when it is complete. [id number] Cornel Hernandez MD [facility] [address],[place] [address] 09/23/2021 11:18:23 09/23/2021 12:07:45 care 565099683 Z39.2 this patient is a 31-year-ol d female presents for follow-up. She is bottle feeding. Her baby is doing well. Her mood is excellent. She has not had sex. She had tubal ligation and she continues to bleed some. It sounds normal. She will follow-up in 2 months for annual exam. Health Concerns Section Related Observation LastModified by Organization Detai ls LastModified Time None Recorded Concern Status LastModified by Organization Details LastModified Time None Recorded Advance Directives Directive None Recorded Payers Encounter Date Sequence Insurance Name Policy Number Policy Mathews Covered Member ID Mathews Member ID Guarantor Name 08/13/2021 1 [facility] ON OR AFTER 01/03/21 (MEDICAID REPLACEMENT - HMO) Sadaf Amanda [id number] Sadaf Amanda 08/13/2021 1 [facility] ON OR AFTER 01/03/21 (MEDICAID REPLACEMENT - HMO) Sadaf Amanda [id number] Sadaf Amanda 08/19/2021 1 [facility] - DOS ON OR AFTER 21 (MEDICAID REPLACEMENT - HMO) Sadaf Amanda [id number] Sadaf Amanda 08/26/2021 1 [facility] ON OR AFTER 01/03/21 (MEDICAID REPLACEMENT - HMO) Sadaf Amanda [id number] Sadaf Amanda 09/23/2021 1 [place] [facility] [place] [facility] Sadaf Amanda [id number] Sadaf Amanda Notes Date Note Type Note Provider Name and Address Organization Details Recorded Time 08/26/2021 text/html This patient is a 30-year-old female who presents for postop follow-up. She is 1 week postop from a delivery. Her incision is clean dry and intact. She has no complaints. Her bleeding is minimal. She denies any nausea, vomiting, fever, chills. She denies any chest pain or shortness of breath. Her baby is doing well. Her mood is good. Gillette catheter was in place, it was causing her irritation, she was sent to Radiology for cystogram, they will call when it is complete. Cornel Hernandez MD [address], [place], [address], [facility] 08/26/2021 12:57:06 09/23/2021 text/html this patient is a 31-year-old female presents for follow-up. She is bottle feeding. Her baby is doing well. Her mood is excellent. She has not had sex. She had tubal ligation and she continues to bleed some. It sounds normal. She will follow-up in 2 months for annual exam. Cornel Hernandez MD [address], [place], [address], [facility] 09/23/2021 12:03:49 OBGyn Episode Ob Episode Information Episode Created Date Number of Fetuses Patient Bloodtype Patient rh Status Prepregnancy Weight lbs Domestic Partner Domestic Partner Phone Father Name Malter Operator Status 10/17/19 21 1 CLOSED Fetus Data First Name Last Name Admitted to NICU Weight (g) Sex Living Outcome Pediatric Complications Fetus ID Race Codes Race Delivery Type , Spontane ous [id number] Nathaniel Calculation Initial Nathaniel Date Initial Exam Date Initial Exam Provider Initial Ultrasound Date Last Menstrual Period Date Ultra Sound Weeks Gestation 0 Eighteen To Twenty Week Nathaniel Update Ultra Sound Date Fundal Height At Umbil Quickening Date Ultra Sound Latest Weeks Gestation Final Nathaniel Confirmed By Final Nathaniel Confirmed Date Final Nathaniel Date Ultra Sound Latest Days Gestation 0 0 Menstrual History Last Menstrual Date Menses Monthly On Bcp Conception Prior Menses Frequency Hcg Plus Date Menarche Onset Age Delivery Information Delivery Date Delivery Type Labor Anesthesia Weeks Gestation Incision Type Labor Labor Length Hrs Delivered By Post Complications Tubal Sterilization Discharge Date Comments 5 Discharge Information Feeding Method Contraceptive Method Maternal HG B and HCT Levels Ob Episode Information Episode Created Date Number of Fetuses Patient Bloodtype Patient rh Status Prepregnancy Weight lbs Domestic Partner Domestic Partner Phone Father Name Malter Operator Status 02/20/20 21 1 O Positive 302 CLOSED Fetus Data First Name Last Name Admitted to NICU Weight (g) Sex Living Outcome Pediatric Complications Fetus ID Race Codes Race Delivery Type 3316.89 15 F true Full Term 44753 Repeat Problems Problem Notes Problem Name Start Date End Date Resolution Snomed Code Not e Sterilization requested [id number] salpingectomy w ith R CS 2 Past history of pre-eclampsia [id number] Deliveries by [id number] x4, plan R CS w ith salpingectomy - [place] signed IPDA on 06/20, scheduled for 08/19 Body mass index 40+ - severely obese 579356400 t esting 34wks, discussed risks Chronic hypertension in obstetric context 6370630 ASA, anten atal testing, baseline PIH labs Anemia MEDICATION 262699512 1 tab slo wfe daily starting 07/19 Nathaniel Calculation Initial Nathaniel Date Initial Exam Date Initial Exam Provider Initial Ultrasound Date Last Menstrual Period Date Ultra Sound Weeks Gestation 09/02/2021 02/19/2021 01/08/2021 09/13/2020 6 Eighteen To Twenty Week Nathaniel Update Ultra Sound Date Fundal Height At Umbil Quickening Date Ultra Sound Latest Weeks Gestation Final Nathaniel Confirmed By Final Nathaniel Confirmed Date Final Nathaniel Date Ultra Sound Latest Days Gestation 0 02/19/2021 09/02/19 22 0 Pre- Flowsheet Flowsheet Date 02/19/2021 Hinojosa Score Blood Edema Fundus Height Fundus Units Glucose Ketones Leukocytes Nitrite Labor Signs Protein Cervic Dilation Cervic Effacement Cervic Station neg none neg Type Weight in lbs Pre/Post Dialysis Refused Weight 300.344760833711 BP Diastolic BP Location Tested BP Systolic BP Type 94 150 80 132 Fetus Heart Rate Present A 160 Fetus Movement A No Comments Sadaf is a 30yo at 1 2 weeks for care. History of CS x4, BMI 49, preeclampsia. Desires sterilization. Also now definitively has cHTN. We discussed risks associated with her BMI, prior CSs, HTN. She will start ASA 162mg, will do baseline PIH labs, NIPT and other labs today. NT normal today. Flowsheet Date 03/19/2021 Hinojosa Score Blood Edema Fundus Height Fundus Units Glucose Ketones Leukocytes Nitrite Labor Signs Protein Cervic Dilation Cervic Effacement Cervic Station none trace Type Weight in lbs Pre/Post Dialysis Refused Weight 303.493197873458 BP Diastolic BP Location Tested BP Systolic BP Type 80 130 Fetus Heart Rate Present Fetus Movement A No Comments Doing well. Will take home 2 4 hour urine supplies and do the collection on Thursday. AFP, CF, SMA to be drawn today. Encouraged flu and covid vaccine. Discussed acog recommendation. Flowsheet Date 04/16/2021 Hinojosa Score Blood Edema Fundus Height Fundus Units Glucose Ketones Leukocytes Nitrite Labor Signs Protein Cervic Dilation Cervic Effacement Cervic Station Type Weight in lbs Pre/Post Dialysis Refused BP Diastolic BP Location Tested BP Systolic BP Type Fetus Heart Rate Present Fetus Movement Comments Flowsheet Date 04/16/2021 Hinojosa Score Blood Edema Fundus Height Fundus Units Glucose Ketones Leukocytes Nitrite Labor Signs Protein Cervic Dilation Cervic Effacement Cervic Station trace Type Weight in lbs Pre/Post Dialysis Refused Weight 309.78052674163 BP Diastolic BP Location Tested BP Systolic BP Type 80 134 Fetus Heart Rate Present Fetus Movement A Yes Comments Flowsheet Date 04/16/2021 Hinojosa Score Blood Edema Fundus Height Fundus Units Glucose Ketones Leukocytes Nitrite Labor Signs Protein Cervic Dilation Cervic Effacement Cervic Station neg none trace Type Weight in lbs Pre/Post Dialysis Refused Weight 309.62529864324 BP Diastolic BP Location Tested BP Systolic BP Type 80 134 Fetus Heart Rate Present Fetus Movement A Yes Comments dropped off 24 hr urine, andrew félix scan incomplete, placental cyst noted f/u 4 weeks, thinks yeast, creams didnt work will rx fluconazole Flowsheet Date 05/14/2021 Hinojosa Score Blood Edema Fundus Height Fundus Units Glucose Ketones Leukocytes Nitrite Labor Signs Protein Cervic Dilation Cervic Effacement Cervic Station Type Weight in lbs Pre/Post Dialysis Refused BP Diastolic BP Location Tested BP Systolic BP Type Fetus Heart Rate Present Fetus Movement Comments Flowsheet Date 05/14/2021 Hinojosa Score Blood Edema Fundus Height Fundus Units Glucose Ketones Leukocytes Nitrite Labor Signs Protein Cervic Dilation Cervic Effacement Cervic Station neg none trace Type Weight in lbs Pre/Post Dialysis Refused Weight 316.661935843175 BP Diastolic BP Location Tested BP Systolic BP Type 83 135 Fetus Heart Rate Present A 145 Fetus Movement A Yes Comments US today anatomy normal and complete except still need AA and 3VV.- will try again in 4 weeks. Taking ASA if I remember. Discussed and encouraged flu shot and COVID vaccine- she had COVID in October, still encouraged. she will consider. Will discuss Tdap next visit. Needs to sign tubal form yet. Flowsheet Date 06/10/2021 Hinojosa Score Blood Edema Fundus Height Fundus Units Glucose Ketones Leukocytes Nitrite Labor Signs Protein Cervic Dilation Cervic Effacement Cervic Station Type Weight in lbs Pre/Post Dialysis Refused BP Diastolic BP Location Tested BP Systolic BP Type Fetus Heart Rate Present Fetus Movement Comments Flowsheet Date 06/10/2021 Hinojosa Score Blood Edema Fundus Height Fundus Units Glucose Ketones Leukocytes Nitrite Labor Signs Protein Cervic Dilation Cervic Effacement Cervic Station neg none 34 none trace Type Weight in lbs Pre/Post Dialysis Refused Weight 318.826452902407 BP Diastolic BP Location Tested BP Systolic BP Type 82 137 Fetus Heart Rate Present A 145 Fetus Movement A Yes Comments Doing well. Anatomy complete now and wnl. 49%. Tubal form signed, ordered R CS and tubal. Is in process of scheduling testing at 32w for cHTN and MO. Discussed and encouraged flu, Tdap, COVID vaccines, she will do at least 2 of them. GCT today. Flowsheet Date 06/25/2021 Hinojosa Score Blood Edema Fundus Height Fundus Units Glucose Ketones Leukocytes Nitrite Labor Signs Protein Cervic Dilation Cervic Effacement Cervic Station none 38 none trace Type Weight in lbs Pre/Post Dialysis Refused Weight 318.504158102252 BP Diastolic BP Location Tested BP Systolic BP Type 89 121 Fetus Heart Rate Present A 146 Fetus Movement A Yes Comments Doing well. Encouraged vacci daily. Fundal height consistently high. Normal growth u/s. Will schedule testing starting at 32 weeks. Flowsheet Date 07/09/2021 Hinojosa Score Blood Edema Fundus Height Fundus Units Glucose Ketones Leukocytes Nitrite Labor Signs Protein Cervic Dilation Cervic Effacement Cervic Station Type Weight in lbs Pre/Post Dialysis Refused Weight 321.501924305223 BP Diastolic BP Location Tested BP Systolic BP Type 82 143 Fetus Heart Rate Present Fetus Movement Comments Flowsheet Date 07/09/2021 Hinojosa Score Blood Edema Fundus Height Fundus Units Glucose Ketones Leukocytes Nitrite Labor Signs Protein Cervic Dilation Cervic Effacement Cervic Station Type Weight in lbs Pre/Post Dialysis Refused BP Diastolic BP Location Tested BP Systolic BP Type Fetus Heart Rate Present Fetus Movement Comments Flowsheet Date 07/09/2021 Hinojosa Score Blood Edema Fundus Height Fundus Units Glucose Ketones Leukocytes Nitrite Labor Signs Protein Cervic Dilation Cervic Effacement Cervic Station none none trace Type Weight in lbs Pre/Post Dialysis Refused Weight 321.914162672775 BP Diastolic BP Location Tested BP Systolic BP Type 82 143 Fetus Heart Rate Present Fetus Movement A Yes Comments Doing well. No PIH symptoms. Pre admit scheduled. C/S on 08-19. Labor and PIH precautions. Flowsheet Date 07/16/2021 Hinojosa Score Blood Edema Fundus Height Fundus Units Glucose Ketones Leukocytes Nitrite Labor Signs Protein Cervic Dilation Cervic Effacement Cervic Station Type Weight in lbs Pre/Post Dialysis Refused BP Diastolic BP Location Tested BP Systolic BP Type Fetus Heart Rate Present Fetus Movement Comments Flowsheet Date 07/16/2021 Hinojosa Score Blood Edema Fundus Height Fundus Units Glucose Ketones Leukocytes Nitrite Labor Signs Protein Cervic Dilation Cervic Effacement Cervic Station Type Weight in lbs Pre/Post Dialysis Refused BP Diastolic BP Location Tested BP Systolic BP Type Fetus Heart Rate Present Fetus Movement Comments Flowsheet Date 07/16/2021 Hinojosa Score Blood Edema Fundus Height Fundus Units Glucose Ketones Leukocytes Nitrite Labor Signs Protein Cervic Dilation Cervic Effacement Cervic Station none none trace Type Weight in lbs Pre/Post Dialysis Refused Weight 324.212429358568 BP Diastolic BP Location Tested BP Systolic BP Type 89 148 92 152 Fetus Heart Rate Present Fetus Movement A Yes Comments Doing well. Did have a heada rosalio from being up late but it resolved. No v/d or e/p. Will check labs today. Precautions given. Pre admit scheduled. Encouraged flu, covid and tdap. Flowsheet Date 07/23/2021 Hinojosa Score Blood Edema Fundus Height Fundus Units Glucose Ketones Leukocytes Nitrite Labor Signs Protein Cervic Dilation Cervic Effacement Cervic Station Type Weight in lbs Pre/Post Dialysis Refused BP Diastolic BP Location Tested BP Systolic BP Type Fetus Heart Rate Present Fetus Movement Comments Flowsheet Date 07/23/2021 Hinojosa Score Blood Edema Fundus Height Fundus Units Glucose Ketones Leukocytes Nitrite Labor Signs Protein Cervic Dilation Cervic Effacement Cervic Station Type Weight in lbs Pre/Post Dialysis Refused BP Diastolic BP Location Tested BP Systolic BP Type Fetus Heart Rate Present Fetus Movement Comments Flowsheet Date 07/23/2021 Hinojosa Score Blood Edema Fundus Height Fundus Units Glucose Ketones Leukocytes Nitrite Labor Signs Protein Cervic Dilation Cervic Effacement Cervic Station neg none trace Type Weight in lbs Pre/Post Dialysis Refused Weight 327.457846826775 BP Diastolic BP Location Tested BP Systolic BP Type 64 122 Fetus Heart Rate Present Fetus Movement A Yes Comments Doing well. No contractions. Pre admit scheduled. Encouraged vaccines. Flowsheet Date 07/30/2021 Hinojosa Score Blood Edema Fundus Height Fundus Units Glucose Ketones Leukocytes Nitrite Labor Signs Protein Cervic Dilation Cervic Effacement Cervic Station Type Weight in lbs Pre/Post Dialysis Refused Weight 323.748042803196 BP Diastolic BP Location Tested BP Systolic BP Type 83 132 Fetus Heart Rate Present Fetus Movement Comments Flowsheet Date 07/30/2021 Hinojosa Score Blood Edema Fundus Height Fundus Units Glucose Ketones Leukocytes Nitrite Labor Signs Protein Cervic Dilation Cervic Effacement Cervic Station Type Weight in lbs Pre/Post Dialysis Refused BP Diastolic BP Location Tested BP Systolic BP Type Fetus Heart Rate Present Fetus Movement Comments Flowsheet Date 07/30/2021 Hinojosa Score Blood Edema Fundus Height Fundus Units Glucose Ketones Leukocytes Nitrite Labor Signs Protein Cervic Dilation Cervic Effacement Cervic Station neg none 46 none trace Type Weight in lbs Pre/Post Dialysis Refused Weight 323.140425488478 BP Diastolic BP Location Tested BP Systolic BP Type 83 132 Fetus Heart Rate Present A 160 Fetus Movement A Yes Comments Doing well. CS and salpingmeaghan heard on 08/[address] Kd cano one of her visits with him. BP stable. BPP 8/8. Normal fluid. GBS next week. Flowsheet Date 08/06/2021 Hinojosa Score Blood Edema Fundus Height Fundus Units Glucose Ketones Leukocytes Nitrite Labor Signs Protein Cervic Dilation Cervic Effacement Cervic Station Type Weight in lbs Pre/Post Dialysis Refused BP Diastolic BP Location Tested BP Systolic BP Type Fetus Heart Rate Present Fetus Movement Comments Flowsheet Date 08/06/2021 Hinojosa Score Blood Edema Fundus Height Fundus Units Glucose Ketones Leukocytes Nitrite Labor Signs Protein Cervic Dilation Cervic Effacement Cervic Station Type Weight in lbs Pre/Post Dialysis Refused BP Diastolic BP Location Tested BP Systolic BP Type Fetus Heart Rate Present Fetus Movement Comments Flowsheet Date 08/06/2021 Hinojosa Score Blood Edema Fundus Height Fundus Units Glucose Ketones Leukocytes Nitrite Labor Signs Protein Cervic Dilation Cervic Effacement Cervic Station 37 Type Weight in lbs Pre/Post Dialysis Refused Weight 326.855388046775 BP Diastolic BP Location Tested BP Systolic BP Type 84 R arm 135 sitting 87 R arm 128 sitting Fetus Heart Rate Present A 145 Fetus Movement A Yes Comments no complaints, discussed wou nd closure for the , group B strep samples were obtained. Flowsheet Date 08/13/2021 Hinojosa Score Blood Edema Fundus Height Fundus Units Glucose Ketones Leukocytes Nitrite Labor Signs Protein Cervic Dilation Cervic Effacement Cervic Station Type Weight in lbs Pre/Post Dialysis Refused BP Diastolic BP Location Tested BP Systolic BP Type Fetus Heart Rate Present Fetus Movement Comments Flowsheet Date 08/13/2021 Hinojosa Score Blood Edema Fundus Height Fundus Units Glucose Ketones Leukocytes Nitrite Labor Signs Protein Cervic Dilation Cervic Effacement Cervic Station Type Weight in lbs Pre/Post Dialysis Refused BP Diastolic BP Location Tested BP Systolic BP Type Fetus Heart Rate Present Fetus Movement Comments Flowsheet Date 08/13/2021 Hinojosa Score Blood Edema Fundus Height Fundus Units Glucose Ketones Leukocytes Nitrite Labor Signs Protein Cervic Dilation Cervic Effacement Cervic Station neg trace none trace Type Weight in lbs Pre/Post Dialysis Refused Weight 329.944424007998 BP Diastolic BP Location Tested BP Systolic BP Type 85 141 Fetus Heart Rate Present A 150 Fetus Movement A Decreased Comments Doing ok. NST nonreactive, B PP 02/10. SHe reports minimal FM last 4 days, and none for last 2-3 hours. Also has intermittent MABRY last 4 days. had PreE in one of her other pregnancies. CS scheduled thursday. To [facility] for extended monitoring, PIH labs, BP monitoring. Flowsheet Date 08/19/2021 Hinojosa Score Blood Edema Fundus Height Fundus Units Glucose Ketones Leukocytes Nitrite Labor Signs Protein Cervic Dilation Cervic Effacement Cervic Station Type Weight in lbs Pre/Post Dialysis Refused BP Diastolic BP Location Tested BP Systolic BP Type Fetus Heart Rate Present Fetus Movement Comments Flowsheet Date 08/26/2021 Hinojosa Score Blood Edema Fundus Height Fundus Units Glucose Ketones Leukocytes Nitrite Labor Signs Protein Cervic Dilation Cervic Effacement Cervic Station Type Weight in lbs Pre/Post Dialysis Refused Weight 318.618834923606 BP Diastolic BP Location Tested BP Systolic BP Type 93 R arm 147 sitting 84 L arm 143 sitting Fetus Heart Rate Present Fetus Movement Comments Menstrual History Last Menstrual Date Menses Monthly On Bcp Conception Prior Menses Frequency Hcg Plus Date Menarche Onset Age 0309/13/2020 Genetic Screening And Infection History Question Response Note Mental Retardation/Autism false Patient's Age Will Be 35 Years Or Older At Estim ated Date of Delivery false Thalassemia (Urdu, Sinhala, Mediterranean, Or Background): MCV < 80 false Neural Tube Defect (Meningomyelocele, Spina Bifi da, Or Anencephaly) false Congenital Heart Defect false Down Syndrome false Denis-Sachs (eg, Gnosticist, Cajun, Romanian-Casey) f alse Cleve Disease false Sickle Cell Disease Or Trait () false Hemophilia Or Other Blood Disorders false Muscular Dystrophy false Cystic Fibrosis false [place]'s Chorea false Intellectual Disability/Autism false If Yes, Was Person Tested For Fragile X? false Other Inherited Genetic Or Chromosomal Disorder false Maternal Metabolic Disorder (eg, Type 1 Diabetes , PKU) false Patient Or Baby's Father Had A Child With Defects Not Listed Above false Recurrent Loss, Or A Stillbirth false Medications (including Suppl ements, Vitamins, Herbs, OTC Drugs), Illicit/Recreational Drugs, Alcohol false If Yes, Agent(s) And Strength/Dosage false Any Other Genetic History false Live With Someone With TB Or Exposed To TB false Patient Or Partner Has History Of Genital Herpes false Rash Or Viral Illness Since Last Menstrual Perio d false History Of STD, Gonorrhea, Chlamydia, HPV, Syphi lis false Other Infection History false History of HIV false History of Hepatitis false Prior GBS-infected child false Hemoglobinopathy Or Carrier false Other Structural Defect false Recent Travel History Outside of Country false Delivery Information Delivery Date Delivery Type Labor Anesthesia Weeks Gestation Incision Type Labor Labor Length Hrs Delivered By Post Complications Tubal Sterilization Discharge Date Comments 2 None Regional-Sp inal 38 Low Transvers e false Cornel Hernandez MD true Maternal Obesity, CHTN & Rpt C/S X4 Discharge Information Feeding Method Contraceptive Method Maternal HG B and HCT Levels Ob Episode Information Episode Created Date Number of Fetuses Patient Bloodtype Patient rh Status Prepregnancy Weight lbs Domestic Partner Domestic Partner Phone Father Name Malter Operator Status 01/23/20 21 1 CLOSED Fetus Data First Name Last Name Admitted to NICU Weight (g) Sex Living Outcome Pediatric Complications Fetus ID Race Codes Race Delivery Type 3572.03 7 F Full Term [id number] Repeat Nathaniel Calculation Initial Nathaniel Date Initial Exam Date Initial Exam Provider Initial Ultrasound Date Last Menstrual Period Date Ultra Sound Weeks Gestation 0 Eighteen To Twenty Week Nathaniel Update Ultra Sound Date Fundal Height At Umbil Quickening Date Ultra Sound Latest Weeks Gestation Final Nathaniel Confirmed By Final Nathaniel Confirmed Date Final Nathaniel Date Ultra Sound Latest Days Gestation 0 0 Menstrual History Last Menstrual Date Menses Monthly On Bcp Conception Prior Menses Frequency Hcg Plus Date Menarche Onset Age Delivery Information Delivery Date Delivery Type Labor Anesthesia Weeks Gestation Incision Type Labor Labor Length Hrs Delivered By Post Complications Tubal Sterilization Discharge Date Comments 0 37 Discharge Information Feeding Method Contraceptive Method Maternal HG B and HCT Levels Ob Episode Information Episode Created Date Number of Fetuses Patient Bloodtype Patient rh Status Prepregnancy Weight lbs Domestic Partner Domestic Partner Phone Father Name Malter Operator Status 10/17/19 21 1 CLOSED Fetus Data First Name Last Name Admitted to NICU Weight (g) Sex Living Outcome Pediatric Complications Fetus ID Race Codes Race Delivery Type 2948.34 8 M Full Term 9018 Repeat Nathaniel Calculation Initial Nathaniel Date Initial Exam Date Initial Exam Provider Initial Ultrasound Date Last Menstrual Period Date Ultra Sound Weeks Gestation 0 Eighteen To Twenty Week Nathaniel Update Ultra Sound Date Fundal Height At Umbil Quickening Date Ultra Sound Latest Weeks Gestation Final Nathaniel Confirmed By Final Nathaniel Confirmed Date Final Nathaniel Date Ultra Sound Latest Days Gestation 0 0 Menstrual History Last Menstrual Date Menses Monthly On Bcp Conception Prior Menses Frequency Hcg Plus Date Menarche Onset Age Delivery Information Delivery Date Delivery Type Labor Anesthesia Weeks Gestation Incision Type Labor Labor Length Hrs Delivered By Post Complications Tubal Sterilization Discharge Date Comments 3 39 GBS positive Discharge Information Feeding Method Contraceptive Method Maternal HG B and HCT Levels Ob Episode Information Episode Created Date Number of Fetuses Patient Bloodtype Patient rh Status Prepregnancy Weight lbs Domestic Partner Domestic Partner Phone Father Name Malter Operator Status 10/17/19 21 1 CLOSED Fetus Data First Name Last Name Admitted to NICU Weight (g) Sex Living Outcome Pediatric Complications Fetus ID Race Codes Race Delivery Type 2522.87 8704 M Full Term 9019 Primary Nathaniel Calculation Initial Nathaniel Date Initial Exam Date Initial Exam Provider Initial Ultrasound Date Last Menstrual Period Date Ultra Sound Weeks Gestation 0 Eighteen To Twenty Week Nathaniel Update Ultra Sound Date Fundal Height At Umbil Quickening Date Ultra Sound Latest Weeks Gestation Final Nathaniel Confirmed By Final Nathaniel Confirmed Date Final Nathaniel Date Ultra Sound Latest Days Gestation 0 0 Menstrual History Last Menstrual Date Menses Monthly On Bcp Conception Prior Menses Frequency Hcg Plus Date Menarche Onset Age Delivery Information Delivery Date Delivery Type Labor Anesthesia Weeks Gestation Incision Type Labor Labor Length Hrs Delivered By Post Complications Tubal Sterilization Discharge Date Comments 2 37 Alphonse IUGR FHT decel Discharge Information Feeding Method Contraceptive Method Maternal HG B and HCT Levels Ob Episode Information Episode Created Date Number of Fetuses Patient Bloodtype Patient rh Status Prepregnancy Weight lbs Domestic Partner Domestic Partner Phone Father Name Malter Operator Status 10/17/19 21 1 CLOSED Fetus Data First Name Last Name Admitted to NICU Weight (g) Sex Living Outcome Pediatric Complications Fetus ID Race Codes Race Delivery Type 3061.74 6 F Full Term 9017 Repeat Nathaniel Calculation Initial Nathaniel Date Initial Exam Date Initial Exam Provider Initial Ultrasound Date Last Menstrual Period Date Ultra Sound Weeks Gestation 0 Eighteen To Twenty Week Nathaniel Update Ultra Sound Date Fundal Height At Umbil Quickening Date Ultra Sound Latest Weeks Gestation Final Nathaniel Confirmed By Final Nathaniel Confirmed Date Final Nathaniel Date Ultra Sound Latest Days Gestation 0 0 Menstrual History Last Menstrual Date Menses Monthly On Bcp Conception Prior Menses Frequency Hcg Plus Date Menarche Onset Age Delivery Information Delivery Date Delivery Type Labor Anesthesia Weeks Gestation Incision Type Labor Labor Length Hrs Delivered By Post Complications Tubal Sterilization Discharge Date Comments 7 38.2 Discharge Information Feeding Method Contraceptive Method Maternal HG B and HCT Levels"
--- NOTE | 2024-12-12 18:54 | ED.SKABFB ---
HPI - Skin/Abscess/Foreign Bdy General Chief complaint: Skin/Abscess/Foreign Body Stated complaint: Toe Irritation Time Seen by Provider: 12/12/24 18:50 Source: patient and RN notes reviewed Mode of arrival: ambulatory Limitations: dementia History of Present Illness HPI narrative: 34-year-old female presents concern for redness, swelling, pain to the 5th digit of her right foot. Reports she was cleaning out in dirty pool yesterday and then she later noticed the redness today. She denies any drainage or open skin. MD complaint: other (Redness) Related Data Allergies Allergy/AdvReac Type Severity Reaction Status Date / Time No Known Allergies Allergy Verified 12/12/24 18:52 Review of Systems Review of Systems: CONSTITUTIONAL: Denies malaise, chills, sweats, or fever. EYES: Denies redness, or discharge. ENT: Denies rhinorrhea, congestion, swollen lips, swollen tongue CARDIOVASCULAR: Denies chest pain, palpitations, or edema. RESPIRATORY: Denies cough or dyspnea. GASTROINTESTINAL: Denies abdominal pain, nausea, vomiting SKIN: Reports redness, swelling, tenderness to the 5th digit of the right foot. Denies purulent drainage, vesicles, bullae, numbness, pain beyond proportion MUSCULOSKELETAL: Denies joint pain or myalgia. NEUROLOGIC: Denies headache. All systems reviewed & are unremarkable except as noted in HPI and below PMFSH Past Medical History Medical History (Updated 12/12/24 @ 18:55 by Jessica Fernandez NP) Morbid obesity Family History Family History Father Hypertension Mother Hypertension Diabetes mellitus Grandparent Diabetes mellitus Social History Social History Smoking status: Never smoker Second hand tobacco smoke exposure: No Substance use: never Spiritual care concerns: No Comments At time of signature, agree with nursing past medical, surgical, social and family history. There is no relevant family history pertinent to the presenting complaint Exam Narrative: GENERAL: Well-appearing, well-nourished, and in no acute distress. HEAD: Normocephalic, atraumatic. EYES: PERRLA, conjunctivae clear ENT: Mucous membranes moist. NECK: Supple. No lymphadenopathy CHEST: Clear to auscultation. No respiratory distress. HEART: Regular rate and rhythm. SKIN: Warm, dry. Erythema, induration, tenderness, warmth with sharp margins noted beneath the nail bed of the 5th digit of the right foot. No vesicles, bullae, necrosis, ecchymosis, crepitus noted. NEURO: Alert and oriented x3. PSYCH: Normal mood and affect Course Course Emergency Course: Patient is aware of diagnosis, understands and agrees to treatment plan. Anticipatory guidance given. Patient agrees to follow-up as directed and is aware of reasons to seek care at the emergency department. Portions of this record may have been created with voice recognition software Level of Care: Express Care Visit Vital Signs Vital signs: Reviewed. MDM - Skin/Abscess/Foreign Bdy MDM Narrative Medical decision making narrative: I evaluated this in the express care. History is obtained from patient who is an independent historian and physical exam was performed.? Available medical records were reviewed. ? Exam findings and relevant testing show no acute concerns or changes; patient is non-toxic appearing and is in no distress. No risk factors or findings concerning for epidural abscess, diskitis, vertebral osteomyelitis, cord compression, cauda equina, vertebral fracture or bone malignancy, AAA, or pyelonephritis. Patient instructed to consider further imaging and workup through their primary care physician as an outpatient if symptoms persist. Does not appear at this time to be erythema multiforme, bullous, SJS, TEN; no evidence at this time to suggest RMSF, NSTI, endocarditis or Lyme disease; patient looks well, nontoxic and is tolerating oral intake; no neurologic signs or symptoms; no headache, photophobia or neck pain; afebrile.? Patient does not have history of of penetrating trauma, laceration, blunt trauma, recent surgery, immunosuppression, malignancy, obesity, alcoholism, corticosteroid use.? Discussed the importance of follow-up, patient agrees; question, cellulitis versus necrotizing soft tissue infection versus abscess.?? Patient is appropriate for outpatient treatment and follow-up. Critical Care Time Critical Care Time Critical Care Time: No Discharge Plan Discharge Clinical Impression: Paronychia Patient Disposition: Home Condition: Stable Instructions: Antibiotic Form, Paronychia (ED) Additional Instructions: Soak your nail: Soak your toe in a mixture of equal parts vinegar and water 3 or 4 times each day. This will help decrease inflammation. Apply a warm compress: Soak a washcloth in warm water and place it on your toe. This will help decrease inflammation. Elevate: Raise your toe above the level of your heart as often as you can. This will help decrease swelling and pain. Prop your toe on pillows or blankets to keep it elevated comfortably. Use lotion: Apply lotion after you wash your feet. This will prevent your skin from becoming too dry. Please follow-up with your primary care doctor in the next 1-2 days. If you cannot follow-up with your primary care doctor please go to the ED for any urgent issues. 2) If you have any worsening of symptoms or any other concerns please go to the ED immediately. 3) Please take medications as prescribed andcontinue taking your home medications as usual. Patient Language: Ukrainian Prescriptions: New sulfamethoxazole-trimethoprim 800-160 mg tablet 1 tablet PO Q12H 7 Days Qty: 14 0RF Follow-up/Referrals: UNKNOWN,DOCTOR [Primary Care Provider] - Time of Disposition: 18:57
== END 2024-12-12 19:02 | disposition home or self-care (01) ==
PROVIDERS: Emergency Provider Nurse Practitioner
DX: L03.031 Cellulitis of right toe (principal); E66.01 Morbid (severe) obesity due to excess calories; Z68.42 Body mass index [BMI] 45.0-49.9, adult
CPT/HCPCS: 99213; G0463

== ENCOUNTER 2025-05-06 18:47 | Emergency (ER) | payer OTHER, SELFPAY ==
[2025-05-06 18:50] VITALS: BP 177/93; PULSE 68; RESP 20; TEMP 36.7; O2SAT 100
--- OUTSIDE RECORDS SUMMARY | 2025-05-06 18:50 | XMS_ITS | Clinical Summary ---
Author Organization [facility] Address [address] [place] [address] Phone Care Team Providers Care Marine Equipment Design Engineer Name Role Phone Unavailable Primary Care Provider Unavailabl e Encounters Date Type Department Care Team Description 05/03/2025 [facility] [address] [place] [address] Sandra Maciel APRN, JEANE from Last 3 Months Social History Tobacco Use Types Packs/Day Years Used Date Smoking Tobacco: Never Assessed Comments Unknown Sex and Gender Information Value Date Recorded Sex Assigned at Not on file Legal Sex Female 12:14 AM CDT Gender Identity Not on file Sexual Orientation Not on file Plan of Treatment Health Maintenance Due Date Last Done Comments Hepatitis C Virus (HCV) Screening 1990 TdaP Immunization 1990 Hepatitis B Immunization (1 of 3 - 19+ 3-dose series) 2009 Pap Smear 2011 Human Papillomavirus (HPV) Immunization (1 - 3-dose SCDM series) 2017 Cervical Cancer Screening (CCS) 2020 HPV/Cotest 2020 Influenza Immunization (#1) 2025 SARS-COV-2 Immunization (2024- season) 2025 Respiratory Syncytial Virus (RSV) Immunization (Adult) (1 - 1-dose 75+ series) 2065 Meningococcal Immunization (ACWY) Aged Out No longer eligible based on patient's age to complete this topic Pneumococcal Immunization Combined Aged Out No longer eligible based on patient's age to complete this topic Rotavirus Immunization Aged Out No lo nger eligible based on patient's age to complete this topic Insurance MEDICAID [employer]
--- OUTSIDE RECORDS SUMMARY | 2025-05-06 18:50 | XMS_ITS | Encounter Summary ---
Author Organization [facility] Address [address] [facility] [place] [place] [address] Phone Care Team Providers Care Casino Runner Name Role Phone Unavailable Primary Care Provider Unavailabl e Encounter Details Date Type Department Care Team (Late st Contact Info) Description 05/03/2025 [facility] [address] [place] [address] Sandra Maciel APRN, JEANE [address] [place] [id number] Social History Tobacco Use Types Packs/Day Years Used Date Smoking Tobacco: Never Assessed Comments Unknown Sex and Gender Information Value Date Recorded Sex Assigned at Not on file Legal Sex Female 12:14 AM CDT Gender Identity Not on file Sexual Orientation Not on file documented as of this encounter Progress Notes * Sandra Maciel APRN, CNP - 05/03/2025 12:15 AM CDT Date: 05/03/2025 00:07:49 Clinician: Sandra Maciel Clinician Patient: Sadaf Amanda Patient : 1990 Patient [address]: [address] [place] [id number] Patient Visit Protocol: Dental Pain Patient Summary: Sadaf is a 34 year old ( : 1990 ) female who initiated a visit for dental pain. Sadaf did not upload images of the affected tooth. The dental pain started 2-3 days ago. Right upper front tooth hurts. Other symptoms consist of: Swelling around the gums Tenderness to gentle pressure around the affected area Sensitivity to hot or cold liquids around the affected area Ear pain Pain every time when opening the mouth wide Enlarged lymph nodes in the neck Symptom details Dental pain: The pain is severe (7-9 on a 10 point pain scale). Denied symptoms include: chills, bleeding of the gums, fever, dyspnea, red or yellow lump present at the gum line of the painful tooth, redness around the gums, foul-smelling drainage from the affected tooth or gum, swelling of the tongue, and facial swelling. Precipitating events Before the tooth pain began, Sadaf had a cracked or chipped tooth and a visible cavity in the painful tooth. Sadaf does not have a lost filling and a lost crown. The tooth pain is not a result of a dental procedure. Sadaf does not have a significant facial injury and does not have an avulsed tooth. Pertinent medical history Sadaf has not been told by a provider to avoid NSAIDs. Sadaf does not get yeast infections when she takes antibiotics. Sadaf does not smoke or use smokeless tobacco. Sadaf does not vape or use other e-cigarette products. Sadaf denies and denies . Weight: 270 lbs (122.47 kg) [facility] Specific Question(s): When asked the question Are you an existing [facility] patient?, Sadaf responded No, I am a new patient. MEDICATIONS: No current medications, ALLERGIES: NKDA Clinician Response: Dear Sadaf, Based on the information provided, you have a dental abscess. A dental abscess is a collection of pus that's caused by a bacterial infection and forms inside the teeth or gums. If left untreated, the infection can spread and the condition can become very severe. Medication information I am prescribing: Amoxicillin-pot clavulanate 875-125 mg oral tablet. Take 1 tablet by mouth every 12 hours for 5 days. There are no refills with this prescription. Yeast infections can be a common side effect of antibiotics. The most common symptom of a yeast infection is itchiness in and around the vagina. Other signs and symptoms include burning, redness of the vulva (the outer part of the female genitals), or a thick, white vaginal discharge that looks like cottage cheese and does not have a bad smell. If you become during this course of treatment, stop taking the medication and contact your primary care provider. Self care Until you can get to the dentist, here are some steps you can take to be as comfortable as possible: Put an ice pack on your cheek around the tooth that hurts Rinse with warm saltwater for dental pain two to three times a day If your tooth is sensitive, avoid very hot or very cold food and drinks and use toothpaste for sensitive teeth Avoid sugary foods and drink and acidic food and drinks such as citrus fruits, and tomatoes Stick to soft foods that are easy to chew and avoid chewing on the side of the affected tooth Continue to brush your teeth twice a day with a toothpaste that contains fluoride Use a soft toothbrush Temporarily avoid flossing around the affected tooth Do not drain the abscess yourself at home When to seek care Even if you can't get in to see a dentist right away, call your dentist as soon as possible to tell them of your current symptoms and make an appointment. Dentists often have some openings in their schedule for dental emergencies. Please be seen at a dental clinic or urgent care if any of the following occur: New symptoms develop or symptoms become worse You develop a fever It is possible to have an allergic reaction to an antibiotic even if you have not had one in the past. If you notice a new rash, significant swelling, or difficulty breathing, stop taking this medication immediately and go to a clinic or urgent care. Diagnosis: Dental abscess Diagnosis ICD: K04.7 Prescriptions Prescription: amoxicillin-pot clavulanate 875-125 mg oral tablet, take 1 tablet by mouth every 12 hours for 5 days Sent To: [facility] 1071 - [phone] [place] [id number] Sandra Maciel - documented in this encounter Plan of Treatment Not on file documented as of this encounter Visit Diagnoses Not on filedocumented in this encounter
--- NOTE | 2025-05-06 18:55 | ED.DENTAL ---
HPI - Dental/Oral General Chief complaint: Dental/Oral Stated complaint: tooth pain Time Seen by Provider: 05/06/25 18:52 Patient presents to the [facility] with complaints of continued left lower dental pain that began about 5-6 days ago. Patient noted she did an online dental visit and was placed on Augmentin. Patient noted similar episode several months ago was placed on amoxicillin and had to be changed clindamycin because this did not work. Patient also reports taking Tylenol and ibuprofen as well as Orajel as well with minimal relief of symptoms. Related Data Home Medications ?Medication ?Instructions ?Recorded ?Confirmed ?Last Taken ?Type amoxicillin 875 mg-potassium tablet 05/06/25 Unknown History clavulanate 125 mg tablet Allergies Allergy/AdvReac Type Severity Reaction Status Date / Time No Known Allergies Allergy Verified 12/12/24 18:52 Review of Systems Constitutional: Constitutional: Reports as per HPI, Denies chills, Denies fatigue, Denies fever(s) and Denies weakness Eyes: Eyes: Reports no additional eye complaints ENT: Reports as per HPI, Denies vertigo, Denies dizziness, Denies nasal congestion and Denies sore throat Comments: Left lower dental pain Cardiovascular: Cardiovascular: Reports no additional cardiovascular complaints Respiratory: Respiratory: Reports no additional respiratory complaints Gastrointestinal: Gastrointestinal: Reports no additional gastrointestinal complaints Genitourinary: Genitourinary: Reports no additional female genitourinary complaints Musculoskeletal: Musculoskeletal: Reports no additional musculoskeletal complaints Integumentary/Breasts: Skin/Breast: Reports as per HPI, Denies pruritus, Denies erythema, Denies rash and Denies skin ulcer Neurologic: Reports as per HPI, Denies vertigo, Denies dizziness, Denies headache(s) and Denies weakness Psychiatric: Psychiatric: Reports no additional psychiatric complaints Endocrine: Endocrine: Reports no additional endocrine complaints Hematologic/Lymphatic: Hematologic/Lymphatic: Reports no additional hematologic/lymphatic complaints Allergic/Immunologic: Allergic/Immunologic: Reports no additional allergic/immunologic complaints [facility] Past Medical History Medical History (Updated 05/06/25 @ 19:04 by Nithya Andrew APRN, ACTING MANAGER-C) Morbid obesity Family History Family History Father Hypertension Mother Hypertension Diabetes mellitus Grandparent Diabetes mellitus Social History Social History Smoking status: Never smoker Second hand tobacco smoke exposure: No Substance use: never Spiritual care concerns: No Exam Const: General: healthy appearing and no acute distress Nutritional Appearance: well nourished Orientation/consciousness: patient oriented x3 Limitations: no limitations HENMT: Head: normal to inspection Ears: external ears normal and TM's normal bilaterally Face and sinus: normal facial exam and sinuses nontender Mouth: Yes Normal oral and palatal mucosa present and Yes lip normal Teeth and gingiva: abnormal tooth and associated gingiva (left lower dental pain and swelling- no abscess. ) Throat: posterior oropharynx normal Neck: Neck: normal visual inspection and no lymphadenopathy Resp: Effort & Inspection: normal respiratory effort Auscultation: clear to auscultation bilaterally Cardio: Rate: regular rate Rhythm: regular rhythm Skin: General skin exam: normal color Rashes: no rashes Wounds: no wounds Neuro: General: patient oriented x3 Speech: normal speech Gait exam (Neuro): Normal gait present Psych: Mental Status: mental status grossly normal Affect: normal affect Attitude: cooperative Course Course Level of Care: Express Care Visit MDM - Dental/Oral MDM Narrative Medical decision making narrative: The patient was evaluated by myself in the express care. History is obtained from patient who is an independent historian and physical exam was performed. Available medical records were reviewed at this time. Exam findings show no acute concerns or changes; patient is non-toxic appearing and is in no distress. Patient is appropriate for outpatient treatment and follow-up. I have evaluated and discussed social determinants of health with the patient that could potentially impact subsequent diagnosis and treatment plans. Differential diagnosis and treatment plan were discussed with the patient. Patient agrees with discussion and after shared medical decision making agrees with plan of care. All questions were answered to the patient's satisfaction. Differential Diagnosis Differential diagnosis: Likely gingival abscess, dental caries, toothache, dental abscess, fracture of tooth and aphthous ulcer Medical Records Attestation: I reviewed the patient's medical records. Discharge Plan Discharge Clinical Impression: Toothache Patient Disposition: Home Condition: Stable Instructions: Antibiotic Form, Toothache (ED) Additional Instructions: Take antibiotic until it's gone. Brushing teeth at least twice daily with gentle flossing. Avoid temperature extremes---when you eat. Salt gargle to rinse your mouth after every meal You may apply ice to the face to reduce pain/swelling. For pain, you may take: Tylenol 650-1000mg by mouth every 4-6 hours. Do not exceed 4000mg in 24 hours. Advil (Ibuprofen) 600 mg by mouth every 6 hours. Do not exceed 2400mg in 24 hours. Also, recommend regular dental check up one-two times a year to prevent tooth decay and other periodontal disease. Follow-up with the dentist as soon as possible--see the list provided Patient Language: Ukrainian Prescriptions: New clindamycin HCl [Cleocin HCl] 300 mg capsule 300 mg PO Q8H Qty: 30 0RF lidocaine HCl [Lidocaine Viscous] 2 % solution 1 applic mucous membrane QID PRN (Reason: pain) Qty: 100 0RF No Action amoxicillin-pot clavulanate 875-125 mg tablet Follow-up/Referrals: PHYSICIAN,ENVIRONMENTAL HEALTH AND SAFETY LEADER [Primary Care Provider, Internal Medicine] Time of Disposition: 19:04
== END 2025-05-06 19:12 | disposition home or self-care (01) ==
PROVIDERS: Emergency Provider Nurse Practitioner Family
DX: K08.89 Other specified disorders of teeth and supporting structures (principal); E66.01 Morbid (severe) obesity due to excess calories; Z68.42 Body mass index [BMI] 45.0-49.9, adult
CPT/HCPCS: 99213; G0463